=== PATIENT | male | born 1950 | race Caucasian/White ===

== ENCOUNTER 2017-06-24 09:41 | Day surgery (SDC) | payer MEDICARE ==
[2017-06-24] MEDS ORDERED: LIDOCAINE 2% MDV (20MG/ML) 20ML VIAL IV ONE ×2 (13:56→15:42)
[2017-06-24] MEDS ORDERED: TETRACAINE HCL 0.5% 15 ML OPTH BTL OPTH ONE (13:56)
[2017-06-24] MEDS ORDERED: LIDOCAINE 1% MPF 100MG/10ML STERILE-PAK AMPULE IV ONE (13:56)
[2017-06-24] MEDS ORDERED: TETRACAINE HCL 0.5% OPTH 2ML SOLU OPTH ONE (13:56)
[2017-06-24] MEDS ORDERED: EPINEPHRINE 1 MG/ML AMPUL SQ ONE (13:56)
[2017-06-24] MEDS ORDERED: CIPROFLOXACIN HCL 0.0015 GM, PHENYLEPHRINE HCL 0.05 GM, KETOROLAC TROMETHAMINE 0.000625 GM MC ONE ×5 (14:00)
--- NOTE | 2017-06-24 15:20 | OP NOTE CHAMES ---
DATE OF PROCEDURE: 06/24/17 PREOPERATIVE DIAGNOSIS: Nuclear sclerotic cataract, right eye, and posterior subcapsular cataract, right eye. POSTOPERATIVE DIAGNOSIS: Nuclear sclerotic cataract, right eye, and posterior subcapsular cataract, right eye. OPERATION: Phacoemulsification of cataractous lens with implantation of intraocular lens. LENS IMPLANT USED: Guthrie Model PCB00 + 21.5 diopters. COMPLICATIONS: None. PROCEDURE IN DETAIL: Following a retrobulbar and facial block, the patient was prepped and draped in the usual fashion for eye surgery. A lid speculum was placed in the right eye after which a 2.4 mm tunnel wound was placed at the temporal limbus and dissected into clear cornea. A paracentesis was placed at 2 oclock hours to the left and right of the initial incision and the chamber deepened with Viscoelastic. The keratome was then used to enter the anterior chamber after which the continuous circular capsulorrhexis was accomplished without difficulty using a bent needle and a Utrata forceps. Hydrodissection and hydrodelineation of the lens was performed after which the nucleus of the lens was removed using the Phaco handpiece in the [id number] technique. The residual cortical material was irrigated and aspirated from the eye after which the bag and chamber were re-examined. The bag was re-inflated with Viscoelastic and the intraocular lens injected into the capsular bag where it centered well. The Viscoelastic was then copiously irrigated and aspirated from the eye after which the temporal tunnel wound and paracentesis were hydrated and the wounds were examined. They were noted to be watertight. The lid speculum was removed from the eye and the eye patched and shielded. The patient was transferred to the recovery room in satisfactory condition and given an appointment to be reexamined in the clinic later today or as directed by Dr. Collins. JOB NUMBER: [id number] MTDD
[2017-06-24] MEDS ORDERED: MIDAZOLAM HCL 2MG/2ML VIAL IV ONE (15:42)
[2017-06-24] MEDS ORDERED: PROPOFOL 10 MG/ML VIAL IV ONE (15:42)
== END 2017-06-24 12:35 | disposition home or self-care (01) ==
LOC: SUR 09:41
PROVIDERS: ATTEND Ophthalmology
DX: H25.11 Age-related nuclear cataract, right eye (principal); E11.9 Type 2 diabetes mellitus without complications; Z79.4 Long term (current) use of insulin; Z79.84 Long term (current) use of oral hypoglycemic drugs; E78.00 Pure hypercholesterolemia, unspecified; I10 Essential (primary) hypertension; Z87.891 Personal history of nicotine dependence
CPT/HCPCS: J0171; J3490

== ENCOUNTER 2017-07-08 09:58 | Day surgery (SDC) | payer MEDICARE ==
[2017-07-08] MEDS ORDERED: LIDOCAINE 2% MDV (20MG/ML) 20ML VIAL IV ONE ×2 (13:00→14:00)
[2017-07-08] MEDS ORDERED: PROPOFOL 10 MG/ML VIAL IV ONE (13:00)
[2017-07-08] MEDS ORDERED: NEOMYCIN/POLY./DEXAM OPTH OINT OPTH ONE (14:00)
[2017-07-08] MEDS ORDERED: TETRACAINE HCL 0.5% 15 ML OPTH BTL OPTH ONE (14:00)
[2017-07-08] MEDS ORDERED: EPINEPHRINE 1 MG/ML AMPUL SQ ONE (14:00)
[2017-07-08] MEDS ORDERED: CIPROFLOXACIN HCL 0.0015 GM, PHENYLEPHRINE HCL 0.05 GM, KETOROLAC TROMETHAMINE 0.000625 GM MC ONE ×5 (18:00)
--- NOTE | 2017-07-09 07:45 | OP NOTE CHAMES ---
DATE OF PROCEDURE: 07/08/2017. PREOPERATIVE DIAGNOSIS: Nuclear sclerotic and posterior subcapsular cataract, right eye. POSTOPERATIVE DIAGNOSIS: Nuclear sclerotic and posterior subcapsular cataract, right eye. OPERATION: Phacoemulsification of cataractous lens with implantation of intraocular lens. LENS IMPLANT USED: Guthrie Model PCB00 + 21.5 diopters. COMPLICATIONS: None. PROCEDURE IN DETAIL: Following a retrobulbar and facial block, the patient was prepped and draped in the usual fashion for eye surgery. A lid speculum was placed in the right eye after which a 2.4 mm tunnel wound was placed at the temporal limbus and dissected into clear cornea. A paracentesis was placed at 2 oclock hours to the left and right of the initial incision and the chamber deepened with Viscoelastic. The keratome was then used to enter the anterior chamber after which the continuous circular capsulorrhexis was accomplished without difficulty using a bent needle and a Utrata forceps. Hydrodissection and hydrodelineation of the lens was performed after which the nucleus of the lens was removed using the Phaco handpiece in the [id number] technique. The residual cortical material was irrigated and aspirated from the eye after which the bag and chamber were re-examined. The bag was re-inflated with Viscoelastic and the intraocular lens injected into the capsular bag where it centered well. The Viscoelastic was then copiously irrigated and aspirated from the eye after which the temporal tunnel wound and paracentesis were hydrated and the wounds were examined. They were noted to be watertight. The lid speculum was removed from the eye and the eye patched and shielded. The patient was transferred to the recovery room in satisfactory condition and given an appointment to be reexamined in the clinic later today or as directed by Dr. Collins. David Collins M.D. Date & Time JOB NUMBER: [id number] MTDD
== END 2017-07-08 12:15 | disposition home or self-care (01) ==
LOC: SUR 09:58
PROVIDERS: ATTEND Ophthalmology
DX: H25.12 Age-related nuclear cataract, left eye (principal); E11.9 Type 2 diabetes mellitus without complications; Z79.84 Long term (current) use of oral hypoglycemic drugs; Z79.4 Long term (current) use of insulin; E78.00 Pure hypercholesterolemia, unspecified; I10 Essential (primary) hypertension; H25.041 Posterior subcapsular polar age-related cataract, right eye
CPT/HCPCS: J0171

== ENCOUNTER 2018-03-07 08:39 | Emergency (ER) | payer MEDICARE ==
--- NOTE | 2018-03-07 09:08 | Emergency Department Record ---
History of Present Illness - General Chief Complaint: Neck Injury/Pain Stated Complaint: NECK PAIN Time Seen by Provider: 03/07/18 08:51 Source: Patient Mode of Arrival: Ambulatory Limitations: No limitations - History of Present Illness Initial Comments: The patient is here due to L posterior neck pain for 3 days. It has gotten progressively worse since the onset and intermittently radiates to the L shoulder. There is no arm or leg numbness, weakness or tingling. The pain is much worse with bending the head and neck to the R. He denies any CP, SOB, EDSON, or sweating. The patient denies any trauma, injury, or fall. MD Complaint: Neck pain Onset/Timin -: Days(s) Place: Home Radiation: Left shoulder, Left upper extremity Severity: Moderate, Constant Severity scale (1-10): 8 Consistency: Constant Improves With: Medication OTC/prescribed Worsens With: None Treatments Prior to Arrival: Acetaminophen - Related Data Home Medications Medication Instructions Recorded Confirmed Last Taken Aspirin Chewable 81 mg PO DAILY 03/07/18 03/07/18 Unknown Atorvastatin Calcium 20 mg PO DAILY 03/07/18 03/07/18 Unknown Gabapentin [Neurontin] 100 mg PO TID 03/07/18 03/07/18 Unknown Glimepiride [Amaryl] 8 mg PO DAILY 03/07/18 03/07/18 Unknown Insulin Degludec [Tresiba 50 unit SQ BID 03/07/18 03/07/18 Unknown Flextouch U-100] Meloxicam 7.5 mg PO BID 03/07/18 03/07/18 Unknown Previous Rx's Medication Instructions Recorded Acetaminop W/ Codeine 300/30Mg 1 tab PO Q6H #12 tab 03/07/18 [Tylenol #3] Cyclobenzaprine HCl [Flexeril] 10 mg PO TID PRN #20 tablet 03/07/18 Allergies Allergy/AdvReac Type Severity Reaction Status Date / Time No Known Drug Allergies Allergy Verified 03/07/18 08:45 Travel Screening - Travel/Exposure Within Last 30 Days Have you traveled within the last 30 days?: No Review of Systems Constitutional: Denies: Chills, Fever, Other Eyes: Denies: Eye discharge, Eye pain ENT: Denies: Congestion Respiratory: Denies: Cough, Dyspnea Past Medical History - SOCIAL HISTORY Smoking Status: Former smoker Alcohol Use: None Drug Use: None - RESPIRATORY Hx Respiratory Disorders: No - CARDIOVASCULAR Hx Cardio Disorders: Yes Hx Heart Attack: Yes - NEURO Hx Neuro Disorders: No Hx of Migraines: Yes Hx Neuropathy: Yes - GI Hx GI Disorders: Yes Hx Reflux: Yes Hx Hiatal Hernia: Yes - Hx Genitourinary Disorders: No - ENDOCRINE Hx Endocrine Disorders: Yes - MUSCULOSKELETAL Hx Musculoskeletal Disorders: No Hx Arthritis: Yes - PSYCH Hx Psych Problems: No - HEMATOLOGY/ONCOLOGY Hx Hematology/Oncology Disorders: No Family Medical History Any Significant Family History?: No Physical Exam - General General Appearance: Alert, Oriented x3, Cooperative, No acute distress - Head Head exam: Atraumatic, Normocephalic, Normal inspection - Eye Eye exam: Normal appearance, PERRL, EOMI - ENT Throat exam: Normal inspection. negative: Tonsillar erythema, Tonsillar exudate - Neck Neck exam: Normal inspection, Full ROM (There is normal ROM with an increase in pain with bending the head and neck to the R.), Tenderness (The patient is very reproducible to palpation over the L posterior cervical muscles. ). negative: Lymphadenopathy, Meningismus - Respiratory Respiratory exam: Normal lung sounds bilaterally. negative: Respiratory distress - Cardiovascular Cardiovascular Exam: Regular rate, Normal rhythm, Normal heart sounds - GI/Abdominal GI/Abdominal exam: Soft, Normal bowel sounds. negative: Tenderness - Extremities Extremities exam: Normal inspection, Full ROM, Normal capillary refill. negative: Tenderness Image of Full Body: 1 - Area of pain and 100% reproducible tenderness. - Neurological Neurological exam: Alert, Normal gait, Oriented X3, Reflexes normal. negative: Abnormal gait, Altered, Motor sensory deficit - Skin Skin exam: negative: Rash Course Vital Signs 03/07/18 08:42 Temperature 97.5 F L Pulse Rate 70 Respiratory 20 Rate Blood Pressure 147/105 Pulse Ox 99 - Reevaluation(s) Reevaluation #1: The patient is doing better at this time. He denies any CP, SOB, EDSON, sweating, or nausea and also denies any new balance issues or weakness. I did discuss the xrays with him and the need for F/U later this week. 03/07/18 10:03 Medical Decision Making - Data Complexity MDM Data: X-Ray Ordered and/or Reviewed - Radiology Data Radiology results: Report reviewed (Cspine: Sacha QUINTAINLLA, O/W neg.) Disposition Disposition: Discharge Clinical Impression: Muscle spasm Disposition: Home, Self-Care Condition: (2) Stable Instructions: Muscle Strain (ED) Additional Instructions: Please take the Tylenol # 3 and Flexeril if needed for pain. Please see your family doctor for recheck later this week. Return to the ER for any worsening pain, fever, rash, swelling, or any arm or leg numbness, weakness or tingling. Prescriptions: Acetaminop W/ Codeine 300/30Mg [Tylenol #3] 1 tab PO Q6H #12 tab Cyclobenzaprine HCl [Flexeril] 10 mg PO TID PRN #20 tablet PRN Reason: Pain Forms: Patient Portal Access Time of Disposition: 10:06 Quality - Quality Measures Quality Measures: N/A - Blood Pressure Screening View Details: Yes Does Patient Have Any of the Following: No Blood Pressure Classification: Pre-Hypertensive BP Reading Systolic Measurement: 124 Diastolic Measurement: 64 Screening for High Blood Pressure: < Pre-Hypertensive BP, F/U Documented > [ G8950] Pre-Hypertensive Follow-up Interventions: Referral to alternative/primary care provider.
[2018-03-07] MEDS: ACETAMINOPHEN 325 MG TAB PO ONE (09:33)
--- NOTE | 2018-03-08 08:46 | RADIOLOGY REPORT ---
EXAM: CERVICAL SPINE HISTORY: NECK PAIN. TECHNIQUE: Six views of the cervical spine were obtained. Comparison: None. Encounter: Initial. FINDINGS: Osteopenia. The vertebral body height and alignment is preserved. The atlantoaxial space is preserved. The lateral masses are not displaced. Multilevel degenerative change throughout the cervical spine, greatest at the C5 -C6 and C6-C7 levels. IMPRESSION: OSTEOPENIA WITH DIFFUSE/MULTILEVEL DEGENERATIVE CHANGE. JOB NUMBER: [id number] MTDD
== END 2018-03-07 10:14 | disposition home or self-care (01) ==
LOC: ER 08:39
DX: M62.838 Other muscle spasm (principal); M50.322 Other cervical disc degeneration at C5-C6 level
CPT/HCPCS: 72050; 99283

== ENCOUNTER 2018-09-15 12:58 | Emergency (ER) | payer MEDICARE ==
[2018-09-15] MEDS ORDERED: IPRATROPIUM/ALBUTEROL (0.5MG/3MG) NEB INH ONE (13:21)
--- NOTE | 2018-09-15 13:26 | Emergency Department Record ---
History of Present Illness - General Chief Complaint: Difficulty Breathing Stated Complaint: SOB Time Seen by Provider: 09/15/18 13:14 Source: Patient, Family Mode of Arrival: Ambulatory Limitations: No limitations - History of Present Illness Initial Comments: The patient is here due to developing coughing, wheezing, and SOB off and on today. He denies any CP, fever, or sputum production. Additionally he has been experiencing fatigue and weakness. The patient had a similar issue about a month ago and was told he had a touch of pneumonia. He also has had L leg swelling for about 6 months. MD Complaint: Cough, Shortness of breath Onset/Timin -: Hour(s) Consistency: Intermittent Improves With: Other Worsens With: Exertion Known History Of: Other Context: Recent illness, Recent URI Associated Symptoms: Cough Treatments Prior to Arrival: None - Related Data Home Oxygen Therapy: No Allergies Allergy/AdvReac Type Severity Reaction Status Date / Time No Known Drug Allergies Allergy Verified 09/15/18 13:02 Travel Screening - Travel/Exposure Within Last 30 Days Have you traveled within the last 30 days?: No - Travel/Exposure Within Last Year Have you traveled outside the [place] in the last year?: No - Additonal Travel Details Have you been exposed to anyone with a communicable illness?: No - Travel Symptoms Symptom Screening: None Review of Systems Constitutional: Reports: Malaise. Denies: Chills, Fever Eyes: Denies: Eye discharge ENT: Reports: Congestion Respiratory: Reports: Cough, Dyspnea, Wheezes. Denies: Hemoptysis, Stridor Cardiovascular: Denies: Arrhythmia, Chest pain Endocrine: Reports: Fatigue Gastrointestinal: Denies: Nausea, Vomiting Genitourinary: Denies: Hematuria Musculoskeletal: Denies: Arthralgia Skin: Denies: Bruising Past Medical History - SOCIAL HISTORY Smoking Status: Former smoker Alcohol Use: None Drug Use: None - RESPIRATORY Hx Respiratory Disorders: No - CARDIOVASCULAR Hx Cardio Disorders: Yes Hx Heart Attack: Yes - NEURO Hx Neuro Disorders: No Hx of Migraines: Yes Hx Neuropathy: Yes - GI Hx GI Disorders: Yes Hx Reflux: Yes Hx Hiatal Hernia: Yes - Hx Genitourinary Disorders: No - ENDOCRINE Hx Endocrine Disorders: Yes - MUSCULOSKELETAL Hx Musculoskeletal Disorders: No Hx Arthritis: Yes - PSYCH Hx Psych Problems: No - HEMATOLOGY/ONCOLOGY Hx Hematology/Oncology Disorders: No Hx Clotting Problems: Yes (STATES SM ONE IN LEG BUT HAS NO TREATMENT) Family Medical History Any Significant Family History?: No Physical Exam - General General Appearance: Alert, Oriented x3, Cooperative, No acute distress - Head Head exam: Atraumatic, Normocephalic, Normal inspection - Eye Eye exam: Normal appearance, PERRL - ENT Throat exam: Normal inspection. negative: Tonsillar erythema, Tonsillar exudate - Neck Neck exam: Normal inspection, Full ROM. negative: Tenderness - Respiratory Respiratory exam: Normal lung sounds bilaterally. negative: Respiratory distress - Cardiovascular Cardiovascular Exam: Regular rate, Normal rhythm, Normal heart sounds - GI/Abdominal GI/Abdominal exam: Soft, Normal bowel sounds. negative: Tenderness - Extremities Extremities exam: Normal inspection, Pedal edema (Trace L leg.). negative: Calf tenderness - Neurological Neurological exam: Alert, Normal gait. negative: Abnormal gait, Motor sensory deficit - Psychiatric Psychiatric exam: negative: Anxious Course Vital Signs 09/15/18 13:06 Temperature 98.6 F Pulse Rate 96 H Respiratory 20 Rate Blood Pressure 157/82 Pulse Ox 96 - Reevaluation(s) Reevaluation #1: The patient is doing very well at this time. I did discuss the need for further testing and need for transfer for a VQ scan due to the renal Insuffiency. The patient understands and will need to be transferred to [facility] due to the fact he has seen a T[facility] In [facility] there in the past. 09/15/18 15:29 09/15/18 15:59 Reevaluation #2: I did discuss the case with Dr. Manzo at [facility] and he does accept the patient in transfer. He also agrees with the plan for Lovenox and then a VQ scan to R/O PE and also for a [facility] Cardiology consult. 09/15/18 15:44 Medical Decision Making - Data Complexity MDM Data: Labs Ordered and/or Reviewed, X-Ray Ordered and/or Reviewed, EKG Ordered and/or Reviewed - Lab Data Result diagrams: 09/15/18 13:20 09/15/18 13:20 - EKG Data -: EKG Interpreted by Me EKG: No Acute Changes, Unchanged From Previous - Radiology Data Radiology results: Report reviewed (CXR: Neg L leg doppler: Neg. ) Disposition Disposition: Transfer Clinical Impression: Dyspnea Qualifiers: Dyspnea type: unspecified Qualified Code(s): R06.00 - Dyspnea, unspecified Disposition: Acute Care Hospital Transfer Transfer To: [facility] Reason For Transfer: Cardiology Accepting Physician: Jovany Time Discussed w/Accepting Physician: 15:45 Condition: (2) Stable Instructions: Dyspnea (ED) Forms: Patient Portal Access Time of Disposition: 15:45 Quality - Quality Measures Quality Measures: N/A - Blood Pressure Screening View Details: Yes Does Patient Have Any of the Following: No Blood Pressure Classification: Pre-Hypertensive BP Reading Systolic Measurement: 157 Diastolic Measurement: 82 Screening for High Blood Pressure: < Pre-Hypertensive BP, F/U Documented > [ G8950] Pre-Hypertensive Follow-up Interventions: Referral to alternative/primary care provider.
[2018-09-15 13:32] LABS: BASO % 0.1 % (0-6); GRAN % 76.8 % (47-80); HEMATOCRIT 36.1 % (42.0-52.0); HEMOGLOBIN 11.4 gm/dl (14.0-18.0); LYMPH % 13.7 % (16-45); MEAN CELL VOLUME 87.2 fl (81-97); MEAN CORPUSCULAR HEMOGLOBIN 27.5 pg (27-33); MEAN CORPUSCULAR HGB CONC 31.6 g/dl (32-36); MEAN PLATELET VOLUME 12.6 fl (7.4-10.4); MONO % 6.4 % (0-9); PLATELET COUNT 188 K/uL (130-400); RED BLOOD COUNT 4.14 M/uL (4.40-5.70); RED CELL DISTRIBUTION WIDTH 14.2 % (11.5-14.5); WHITE BLOOD COUNT W/O DIFF 8.4 K/uL (4.2-12.2)
[2018-09-15 13:47] LABS: BILIRUBIN,TOTAL 0.4 mg/dL (0.2-1.0); CREATININE 1.3 mg/dL (0.7-1.2)
[2018-09-15 13:48] LABS: TOTAL PROTEIN 6.9 g/dL (6.6-8.7)
[2018-09-15 13:50] LABS: PARTIAL THROMBOPLASTIN TIME 28.8 SECONDS (24.5-39.1)
[2018-09-15 13:53] LABS: ALB/GLOB RATIO 1.6 (1.1-1.8); ALBUMIN 4.2 g/dL (4.0-5.0)
[2018-09-15 14:18] LABS: CKMB 9.5 ng/mL (<6.73); CKMB RELATIVE INDEX 3.8 % (0-4)
[2018-09-15] MEDS ORDERED: ENOXAPARIN 100 MG/ML SYR SQ ONE (15:31)
--- NOTE | 2018-09-16 08:09 | RADIOLOGY REPORT ---
DATE: 09/15/2018. EXAM: TWO-VIEW CHEST. HISTORY: DIFFICULTY BREATHING. TECHNIQUE: Frontal and lateral views of the chest were performed. FINDINGS: Heart size is normal. No pulmonary vascular congestion. No infiltrate or pleural effusion. The osseous structures are normal. IMPRESSION: NO ACUTE DISEASE PROCESS. JOB NUMBER: [id number] MTDD
--- NOTE | 2018-09-16 08:35 | US VENOUS DOPPLER REPORT ---
DATE: 09/15/2018. EXAM: ULTRASOUND OF THE DEEP VENOUS SYSTEM OF THE LEFT LOWER EXTREMITY. HISTORY: SOFT TISSUE SWELLING. TECHNIQUE: Sonographic evaluation of the deep venous system of the left lower extremity was performed with the addition of Doppler compression augmentation. FINDINGS: There is normal blood flow and compression augmentation identified in the deep venous system of the left lower extremity. No evidence of deep vein thrombosis. IMPRESSION: NEGATIVE FOR DEEP VEIN THROMBOSIS IN THE LEFT LOWER EXTREMITY. JOB NUMBER: [id number] MTDD
== END 2018-09-15 17:01 | disposition short-term general hospital (02) ==
LOC: ER 12:58
DX: R06.00 Dyspnea, unspecified (principal); N28.9 Disorder of kidney and ureter, unspecified; R79.89 Other specified abnormal findings of blood chemistry; R53.1 Weakness; R53.83 Other fatigue; I25.2 Old myocardial infarction; Z87.891 Personal history of nicotine dependence
CPT/HCPCS: 71046; 80053; 82550; 82553; 83880; 84145; 84484; 85025; 85379; 85610; 85730; 93005; 93010; 96372; 99285; J1650

== ENCOUNTER 2019-07-24 14:50 | Inpatient (IN) | payer MEDICARE ==
[2019-07-24] MEDS ORDERED: MIDAZOLAM HCL 2MG/2ML VIAL IV ONE (14:51)
[2019-07-24] MEDS ORDERED: LIDOCAINE 2% MDV (20MG/ML) 20ML VIAL IV ONE (14:51)
[2019-07-24] MEDS ORDERED: FENTANYL PF 100MCG/2ML VIAL IV ONE (14:51)
[2019-07-24] MEDS ORDERED: PROPOFOL 10 MG/ML VIAL IV ONE (14:51)
[2019-07-24] MEDS ORDERED: *PACU ONLY* KETAMINE HCL 10 MG/ML (20ML) VIAL IV ONE (14:51)
[2019-07-24] MEDS ORDERED: AMPICILLIN SODIUM/SULBACTAM NA 3 G in 0.9 % SODIUM CHLORIDE 100ML 100 ML IVPB ONE (15:06)
--- NOTE | 2019-07-24 15:19 | Emergency Department Record ---
History of Present Illness - General Chief complaint: Extremity Problem Stated complaint: RIGHT FOOT PAIN Time Seen by Provider: 07/24/19 14:55 Source: Patient Mode of Arrival: Ambulatory Limitations: No limitations - History of Present Illness Initial comments: The patient is here due to R foot pain for almost a week. It has been a lot worse for the last 3 days. The patient did develop R foot redness and a blister on the bottom of the foot. He did see Dr. Barba today who did unroof the infection and did remove a possible FB and did culture the wound. Due to the amount of pain and erythema the patient was seen in the ER for further evaluation. The patient does state he has felt feverish for the last 3 days and had some chills. He denies any CP, SOB, AP, dysuria, or back pain. The patient has been having foot pain that does radiate up the lower leg. MD Complaint: Extremity pain Onset/Timin -: Days(s) Location: Right, Ankle, Foot History of Same: No Radiation: Proximal Improves with: Nothing Worsens with: Nothing Associated Symptoms: Denies other symptoms - Related Data Allergies Allergy/AdvReac Type Severity Reaction Status Date / Time No Known Drug Allergies Allergy Verified 07/24/19 14:56 Travel Screening - Travel/Exposure Within Last 30 Days Have you traveled within the last 30 days?: No Review of Systems Constitutional: Reports: Chills, Malaise. Denies: Fever Eyes: Denies: Eye discharge ENT: Denies: Congestion Respiratory: Denies: Cough Cardiovascular: Denies: Arrhythmia, Chest pain, Dyspnea on exertion, Palpitations Endocrine: Denies: Fatigue Gastrointestinal: Denies: Nausea Genitourinary: Denies: Dysuria Musculoskeletal: Reports: Arthralgia Skin: Denies: Bruising Neurological: Reports: Abnormal gait Past Medical History - SOCIAL HISTORY Smoking Status: Former smoker Alcohol Use: None Drug Use: None - RESPIRATORY Hx Respiratory Disorders: No - CARDIOVASCULAR Hx Cardio Disorders: Yes Hx Heart Attack: Yes Comment:: small blood clot to leg - NEURO Hx Neuro Disorders: Yes Hx of Migraines: Yes Hx Neuropathy: Yes - GI Hx GI Disorders: Yes Hx Reflux: Yes Hx Hiatal Hernia: Yes - Hx Genitourinary Disorders: No - ENDOCRINE Hx Endocrine Disorders: Yes - MUSCULOSKELETAL Hx Musculoskeletal Disorders: No Hx Arthritis: Yes - PSYCH Hx Psych Problems: No - HEMATOLOGY/ONCOLOGY Hx Hematology/Oncology Disorders: No Family Medical History Any Significant Family History?: No Physical Exam - General General Appearance: Alert, Oriented x3, Cooperative, No acute distress - Head Head exam: Atraumatic, Normocephalic - Eye Eye exam: Normal appearance - ENT Throat exam: Normal inspection. negative: Tonsillar erythema, Tonsillar exudate - Neck Neck exam: Normal inspection, Full ROM. negative: Tenderness - Respiratory Respiratory exam: Normal lung sounds bilaterally. negative: Respiratory distress - Cardiovascular Cardiovascular Exam: Regular rate, Normal rhythm, Normal heart sounds - GI/Abdominal GI/Abdominal exam: Soft, Normal bowel sounds. negative: Tenderness - Extremities Extremities exam: Normal capillary refill, Tenderness (There is significant tenderness to the dosal R foot and R lower leg. The R lower leg is not warm or erythematous. There is no crepitance to the R foot or leg. ), Other (The patient has trace DP pulses bilaterally and no PT pulses. There is significant warmth to the dorsal R foot.). negative: Normal inspection (The R foot has significant erythema to the dorsal and plantar surfaces. There is an unroofed skin ulcer on the plantar surface at the base of the 4th toe. ), Calf tenderness, Full ROM, Pedal edema - Back Back exam: Reports: Normal inspection - Neurological Neurological exam: Alert. negative: Motor sensory deficit - Psychiatric Psychiatric exam: Anxious Course Vital Signs 07/24/19 14:51 Temperature 99.7 F H Pulse Rate 76 Respiratory 20 Rate Blood Pressure 143/83 Pulse Ox 98 - Reevaluation(s) Reevaluation #1: After review of the xrays the patient does have gas between the 3rd and 4th MT bones of the foot due to most likely a deep space gas forming infection. I then did discuss the case with Dr. Barba (Podiatry) and he will take the patient to surgery tonight. I then did discuss the case with Dr. Teran and he will admit the patient to the hospital. 07/24/19 16:46 Medical Decision Making - Data Complexity MDM Data: Labs Ordered and/or Reviewed, X-Ray Ordered and/or Reviewed - Lab Data Result diagrams: 07/24/19 15:10 07/24/19 15:10 - Radiology Data Radiology results: Report reviewed (R foot: Prob gas forming infection between the 3rd and 4th toes. R leg Arterial Vascular study: Severe PVD with very poor flow. Severe stenosis at the common femoral and popliteal arteries.) Disposition Disposition: Admit Clinical Impression: Diabetic foot infection Disposition: Still a Patient at [facility] Decision to Admit: Admit from ER Decision to Admit Date: 07/24/19 Decision to Admit Time: 16:49 Accepting Physician: Parul Time Discussed w/Accepting Physician: 16:49 Condition: (2) Stable Forms: Patient Portal Access Time of Disposition: 16:49 Quality - Quality Measures Quality Measures: N/A - Blood Pressure Screening View Details: Yes Does Patient Have Any of the Following: No Blood Pressure Classification: Pre-Hypertensive BP Reading Systolic Measurement: 143 Diastolic Measurement: 83 Screening for High Blood Pressure: < Pre-Hypertensive BP, F/U Documented > [G8950] Pre-Hypertensive Follow-up Interventions: Referral to alternative/primary care provider.
[2019-07-24 15:21] LABS: ABSOLUTE NEUTROPHIL COUNT 8.86; GRAN % 77.4 % (47-80); HEMATOCRIT 32.5 % (42.0-52.0); HEMOGLOBIN 10.3 gm/dl (14.0-18.0); LYMPH % 12.2 % (16-45); MEAN CELL VOLUME 86.2 fl (81-97); MEAN CORPUSCULAR HEMOGLOBIN 27.3 pg (27-33); MEAN CORPUSCULAR HGB CONC 31.7 g/dl (32-36); MEAN PLATELET VOLUME 11.8 fl (7.4-10.4); MONO % 9.4 % (0-9); PLATELET COUNT 218 K/uL (130-400); RED BLOOD COUNT 3.77 M/uL (4.40-5.70); RED CELL DISTRIBUTION WIDTH 14.2 % (11.5-14.5); WHITE BLOOD COUNT W/O DIFF 11.4 K/uL (4.2-12.2)
[2019-07-24] MEDS ORDERED: ACETAMINOPHEN 1,000 MG/100 ML BTL IVPB ONE (15:26)
[2019-07-24 15:32] LABS: BLOOD UREA NITROGEN 29 mg/dL (8-23); CREATININE 1.5 mg/dL (0.7-1.2); EST GLOMERULAR FILTRATION RATE 49 mL/min
[2019-07-24 15:33] LABS: TOTAL PROTEIN 7.4 g/dL (6.6-8.7)
[2019-07-24 15:35] LABS: GLUCOSE,RANDOM 188 mg/dL (74-109)
[2019-07-24 15:37] LABS: ALT/SGPT 17 U/L (<41)
[2019-07-24 15:38] LABS: ALBUMIN 4.2 g/dL (4.0-5.0); ALKALINE PHOSPHATASE 72 U/L (40-129); AST/SGOT 17 U/L (10.0-50.0); BILIRUBIN,DIRECT < 0.2 mg/dL (0-0.3); LACTIC ACID 1.2 mmol/L (0.5-2.2)
--- NOTE | 2019-07-24 16:02 | RADIOLOGY REPORT ---
EXAMINATION: Right Foot, Minimum Three Views EXAM DATE: 07/24/2019 3:49 PM TECHNIQUE: AP, lateral, and oblique INDICATION: R foot and leg pain. COMPARISON: 02/05/2016 ENCOUNTER: Initial FINDINGS: There is soft tissue gas involving the third and fourth toes which could be due to a penetrating inju ry or gas-forming infection. It would be difficult to exclude early osteomyelitis involving the middl e phalanx of the fourth toe. No acute fractures or dislocations are seen. There is an old deformity involving the base of the fift h metatarsal, unchanged. There are sizable plantar and posterior calcaneal spurs. There are atheroscl erotic calcifications. A gas forming infection. IMPRESSION: 1. Soft tissue gas in the third and fourth toes, as described. It would be difficult to exclude early osteomyelitis involving the middle phalanx of the fourth toe. 2. Chronic findings, as noted above. Dictated by: Ryne Bhandari MD on 07/24/2019 3:57 PM. .
[2019-07-24] MEDS: VANCOMYCIN 1.5GM/300ML PREMIX 1.5 GM/300 ML PIGGYBACK IVPB SCH (16:28)
[2019-07-24] MEDS ORDERED: HYDROMORPHONE HCL 2 MG/ML VIAL IVP ONE (16:32)
[2019-07-24] MEDS ORDERED: ONDANSETRON HCL IV 4 MG/2 ML VIAL IVP ONE (16:32)
--- NOTE | 2019-07-24 17:00 | ULTRASOUND REPORT ---
EXAMINATION: Complete Right Lower Extremity Arterial Duplex Doppler Imaging EXAM DATE: 07/24/2019 4:24 PM TECHNIQUE: Color Doppler, spectral Doppler, and cui scale ultrasound evaluation of the right lower extremity arteries was performed. Images recorded and stored on PACS. INDICATION: Right foot and leg pain. COMPARISON: None FINDINGS: RIGHT lower extremity arteries PSV (cm/s) Common femoral............. 163 proximal, 230 at stenosis Deep femoral.................. 233, monophasic Superficial femoral, prox... 131, monophasic Superficial femoral, mid.... 176, biphasic to triphasic Superficial femoral, distal.. 138, monophasic Popliteal.......................... 105 proximal, 445 at stenosis, 80 post stenosis Posterior tibial................. Poorly visualized proximally, 10 distally, stenotic; likely from co llateral flow Peroneal......................... 122 proximal, 29 distal, monophasic Anterior tibial................... 166 proximal, monophasic Dorsalis pedis................. 73, monophasic Multifocal atherosclerotic vascular disease in the right lower extremity. This includes focal severe stenosis at the common femoral artery, focal severe stenosis at the popliteal artery, with diffuse be low the knee atherosclerotic vascular disease as well with poorly visualized posterior tibial arteria l flow proximally and stenotic distal waveform. There is poor flow in the distal peroneal artery as w ell. Likely collateral flow to the distal posterior tibial artery. There is predominantly single-vess el flow to the foot from the anterior tibial artery. IMPRESSION: 1. Multifocal atherosclerotic vascular disease of the right lower extremity, including severe stenos is at the common femoral and popliteal arteries. 2. Poorly visualized posterior tibial arterial flow proximally, with likely collateral flow distally , and associated stenotic waveform. 3. Predominantly single-vessel flow to the foot from the anterior tibial/dorsalis pedis artery. The orange significant findings protocol was initiated at 07/24/2019 4:57 PM. Dictated by: Parminder Carrasco MD on 07/24/2019 4:50 PM. .
[2019-07-24] MEDS ORDERED: RINGERS SOLUTION,LACTATED 1,000 ML IV PRN ×2 (17:14→20:08)
[2019-07-24] MEDS ORDERED: LIDOCAINE 1% MPF 100MG/10ML STERILE-PAK AMPULE SQ ONE (18:16)
[2019-07-24] MEDS ORDERED: BUPIVACAINE 0.25% MPF 30ML VIAL SQ ONE (18:16)
[2019-07-24] MEDS ORDERED: RINGERS SOLUTION,LACTATED 1,000 ML IV ONE (18:55)
[2019-07-24] MEDS ORDERED: 0.9 % SODIUM CHLORIDE 1000ML 1,000 ML IV ONE (20:03)
[2019-07-24] MEDS ORDERED: ONDANSETRON HCL IV 4 MG/2 ML VIAL IVP PRN (20:03)
[2019-07-24] MEDS: GABAPENTIN 100 MG CAPSULE PO SCH (22:20)
[2019-07-24] MEDS: AMPICILLIN SODIUM/SULBACTAM NA 3 G in 0.9 % SODIUM CHLORIDE 100ML 100 ML IVPB SCH (22:20)
[2019-07-24] MEDS: METFORMIN 500 MG TABLET PO SCH (22:20)
[2019-07-25] MEDS: HYDROCODONE/APAP 5/325MG TABLET PO PRN ×4 (02:29→16:36)
[2019-07-25] MEDS: HYDROMORPHONE HCL 2 MG/ML VIAL IVP PRN ×2 (03:24→17:25)
[2019-07-25] MEDS: AMPICILLIN SODIUM/SULBACTAM NA 3 G in 0.9 % SODIUM CHLORIDE 100ML 100 ML IVPB SCH ×3 (03:25→16:33)
[2019-07-25 06:39] LABS: ABSOLUTE NEUTROPHIL COUNT 7.45; BASO % 0.1 % (0-6); EOS % 2.9 % (0-6); GRAN % 79.6 % (47-80); HEMATOCRIT 30.1 % (42.0-52.0); HEMOGLOBIN 9.4 gm/dl (14.0-18.0); LYMPH % 9.5 % (16-45); MEAN CELL VOLUME 87.5 fl (81-97); MEAN CORPUSCULAR HEMOGLOBIN 27.3 pg (27-33); MEAN CORPUSCULAR HGB CONC 31.2 g/dl (32-36); MEAN PLATELET VOLUME 11.3 fl (7.4-10.4); MONO % 7.9 % (0-9); PLATELET COUNT 183 K/uL (130-400); RED BLOOD COUNT 3.44 M/uL (4.40-5.70); RED CELL DISTRIBUTION WIDTH 14.1 % (11.5-14.5); WHITE BLOOD COUNT W/O DIFF 9.4 K/uL (4.2-12.2)
[2019-07-25 07:33] LABS: CREATININE 1.6 mg/dL (0.7-1.2)
[2019-07-25] MEDS: METFORMIN 500 MG TABLET PO SCH (09:23)
[2019-07-25] MEDS: GABAPENTIN 100 MG CAPSULE PO SCH ×2 (09:24→16:35)
[2019-07-25] MEDS ORDERED: LISINOPRIL PO SCH (10:00)
[2019-07-25] MEDS ORDERED: ATORVASTATIN 20 MG TABLET PO SCH (10:00)
[2019-07-25] MEDS ORDERED: LOSARTAN POTASSIUM 100 MG TABLET PO SCH (10:00)
[2019-07-25] MEDS ORDERED: ASPIRIN 81 MG CHEWABLE TABLET PO SCH (10:00)
[2019-07-25] MEDS ORDERED: GLIMEPIRIDE 2 MG TABLET PO SCH (10:00)
[2019-07-25] MEDS ORDERED: INSULIN DEGLUDEC SC SCH (10:00)
[2019-07-25] MEDS: VANCOMYCIN 1.5GM/300ML PREMIX 1.5 GM/300 ML PIGGYBACK IVPB SCH (10:38)
--- NOTE | 2019-07-25 10:41 | Operative Note ---
DATE OF SURGERY: 07/24/2019 PREOPERATIVE DIAGNOSIS: ABSCESS RIGHT FOOT WITH DIABETIC FOOT INFECTION. POSTOPERATIVE DIAGNOSIS: ABSCESS RIGHT FOOT WITH DIABETIC FOOT INFECTION. OPERATION: INCISION AND DRAINAGE OF ABSCESS RIGHT FOOT. SURGEON: Ryne Barba D.P.M. INDICATION FOR PROCEDURE: The patient had diabetic foot infection right which appears secondary to previous foreign body with gas noted on x-ray requiring incision and drainage. ANESTHESIA: Local with IV sedation. Patient was brought into the Operating Room Suite and placed supine upon the operating room table. After successful IV sedation was achieved a right tibial nerve block and ankle block was given with 30 ml of a 50/50 mixture of 1% Lidocaine plain and 0.5% Marcaine plain after alcohol prep. Padding put on right ankle and pneumatic cuff put in place. The foot, ankle and leg were exsanguinated with elevation and an Esmarch started at the ankle. Tourniquet raised to 250 mmHg. Anesthesia check indicated appropriate anesthesia. C-Arm utilized to isolate the area of gas which was noted around the fourth metatarsal head plantarly right in the ball of the right foot. An incision was outlined and made approximately 3 cm in length in the plantar aspect of the right foot. Incision and drainage performed without difficulty. The wound was explored deeply, there were some sinus tracts noted going up into the fourth interspace dorsally. There was also tracking up into the medial aspect of the fourth toe of the right foot as well as up into the dorsal aspect of the third interspace, therefore, an additional incision was made in the dorsal aspect of the third interspace approximately 2 cm in length on the dorsal aspect of the right foot. Blunt dissection was utilized for further exploration, noted was malodor, noted was purulent primarily plantarly clear to straw colored fluid drained dorsally. All bone was covered. No exposed bone. The bone appeared to be intact, therefore, no bone biopsy taken. It did not appear that any bone was exposed. Abscess appeared to be within the soft tissue down to the capsule of the fourth metatarsal phalangeal joint laterally right. There is a small amount of necrotic tissue to the fourth metatarsal phalangeal joint region which was approximately 1.5 to 2 cm in diameter which was debrided. The wound was flushed with pulse saline 3,000 ml, aerobic and anaerobic cultures taken, necrotic tissue debrided and sluffing skin debrided first, skin debrided first, wound packed with one half inch packing strip followed by wet to dry dressing with Adaptic 4-inch Iqra and Kerlix. [place] wrap applied. Tourniquet deflated to 0 mmHg. Hyperemic flush noted to digits. The patient tolerated the procedure well and was transferred to the Recovery Room in stable condition. The wound was left open, no sutures utilized. JOB NUMBER: [id number] MTDD
--- NOTE | 2019-07-25 11:35 | History & Physical ---
History of Present Illness - Date of Service Date of Service for History & Physical: 07/25/19 - History of Present Illness Admitting Diagnosis: 1. Acute R Foot Deep Space Infection. History of Present Illness: 68 y/o male transferred from post doc fellowship office to ED for r/o osteomyelitis for right foot. Patient is a type 2 diabetic, had an ulcer to plantar surface of base of right 4th toe unroofed by Dr. Barba 07/24 and subsequently sent to ED due to extensive soft tissue infection. Patient noticed right foot redness, chills, pain about 2 days prior to being seen. 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 CRP 13.7, uric acid 6.8, Hgb 9.4, BUN 29, Cr 1.6, GFR 46. Foot x-ray- soft tissue gas about 3rd and 4th toes not excluding early osteomyelitis mid phalynx 4th toe. Arterial doppler RLE shows multifocal arherosclerotic vascular disease with severe stenosis of common femoral and popliteal arteries. EKG with no acute changes from previous. Case was discussed with Dr. Barba and was taken to OR for right foot I&D and admitted for IV antibiotics and medical management. 07/25/19 1000- resting in bed, appears uncomfortable. Reports his pain is the same as it has been for the past couple days, rating 6-7/10, having chills and feels feverish (no fever currently). Dressing intact to right foot. Did discuss with him and his concerns regarding healing and the severe stenosis of right leg arteries and how that may impact healing and infection resolution. and patient are in agreement for transfer to [facility] for vascular surgery consult. PCP: Dr. Cervantes Cardiology: Dr. Gonzalez CVTS: Dr. Ta Travel Screening - Travel/Exposure Within Last 30 Days Have you traveled within the last 30 days?: No - Travel/Exposure Within Last Year Have you traveled outside the [place] in the last year?: No - Additonal Travel Details Have you been exposed to anyone with a communicable illness?: No - Travel Symptoms Symptom Screening: None Review of Systems Constitutional: Reports: Chills, Malaise. Denies: Fever Eyes: Denies: Eye discharge ENT: Denies: Congestion Respiratory: Denies: Cough Cardiovascular: Denies: Arrhythmia, Chest pain, Dyspnea on exertion, Palpitations Endocrine: Denies: Fatigue Gastrointestinal: Denies: Nausea Genitourinary: Denies: Dysuria Musculoskeletal: Reports: Arthralgia Skin: Denies: Bruising Neurological: Reports: Abnormal gait Past Medical History - SOCIAL HISTORY Smoking Status: Former smoker Alcohol Use: None Drug Use: None - RESPIRATORY Hx Respiratory Disorders: No - CARDIOVASCULAR Hx Cardio Disorders: Yes Hx Heart Attack: Yes Comment:: small blood clot to leg - NEURO Hx Neuro Disorders: Yes Hx of Migraines: Yes Hx Neuropathy: Yes - GI Hx GI Disorders: Yes Hx Reflux: Yes Hx Hiatal Hernia: Yes - Hx Genitourinary Disorders: No - ENDOCRINE Hx Endocrine Disorders: Yes Hx Diabetes: Yes Comment:: 188 GLUCOSE CHECKED TODAY - MUSCULOSKELETAL Hx Musculoskeletal Disorders: No Hx Arthritis: Yes - PSYCH Hx Psych Problems: No - HEMATOLOGY/ONCOLOGY Hx Hematology/Oncology Disorders: No Hx Clotting Problems: Yes (STATES SM ONE IN LEG BUT HAS NO TREATMENT) Family Medical History Any Significant Family History?: No H&P Meds/Allergies - Allergies Allergies: Allergies Allergy/AdvReac Type Severity Reaction Status Date / Time No Known Drug Allergies Allergy Verified 07/24/19 14:56 - Home Medications Home Medications Medication Instructions Recorded Confirmed Last Taken Lisinopril 10 mg PO DAILY 07/25/19 07/25/19 Unknown - Active Medications Active Medications: Current Medications Hydrocodone Bitart/Acetaminophen (Lenox 5mg/325mg) 1 each PO Q6H PRN PRN Reason: PAIN - MILD (1-4) Stop: 07/30/19 23:59 Last Admin: 07/25/19 02:29 Dose: 2 each Documented by: Hydrocodone Bitart/Acetaminophen (Lenox 5mg/325mg) 2 each PO Q6H PRN PRN Reason: PAIN - MOD TO SEVERE (5-10) Last Admin: 07/25/19 09:35 Dose: 2 each Documented by: Aspirin (Aspirin Chewable) 81 mg PO DAILY [facility] Last Admin: 07/25/19 09:23 Dose: 81 mg Documented by: Atorvastatin Calcium (Lipitor) 20 mg PO DAILY [facility] Last Admin: 07/25/19 09:23 Dose: 20 mg Documented by: Gabapentin (Neurontin) 100 mg PO TID [facility] Last Admin: 07/25/19 09:24 Dose: 100 mg Documented by: Glimepiride (Amaryl) 8 mg PO DAILY [facility] Last Admin: 07/25/19 09:24 Dose: 8 mg Documented by: Hydromorphone HCl (Dilaudid) 1 mg IVP Q4H PRN PRN Reason: PAIN - MODERATE (5-7) Last Admin: 07/25/19 03:24 Dose: 1 mg Documented by: VANCOMYCIN 1.5GM/300ML PREMIX (Vancomycin 1.5 Gram/300 Ml Bag) 1.5 gm in 300 mls @ 200 mls/hr IVPB Q18H [facility] Last Admin: 07/25/19 10:38 Dose: 300 mls/hr Documented by: Ampicillin Sodium/Sulbactam (Sodium 3 g/ Sodium Chloride) 100 mls @ 200 mls/hr IVPB Q6H [facility] Last Infusion: 07/25/19 10:39 Dose: Infused Documented by: Lactated Ringer's () 1,000 mls @ 125 mls/hr IV .Q8H PRN PRN Reason: LARGE VOLUME IV Last Infusion: 07/24/19 22:52 Dose: Infused Documented by: Losartan Potassium (Losartan Potassium) 100 mg PO DAILY [facility] Last Admin: 07/25/19 09:23 Dose: 100 mg Documented by: Metformin HCl (Glucophage Ir) 1,000 mg PO BID [facility] Last Admin: 07/25/19 09:23 Dose: 1,000 mg Documented by: Non-Formulary Medication (Lisinopril) 1 tab PO DAILY [facility] Ondansetron HCl (Zofran) 4 mg IVP Q4H PRN PRN Reason: NAUSEA Patient Own Med: Insulin Degludec [ Tresiba Flextouch U- 100 50 each SC DAILY [facility] Physical Exam - Vital Signs Vital Signs: Vital Signs - Last 24 Hrs Temp Pulse Pulse Resp BP BP Pulse Ox 07/25/19 09:00 98.4 F 73 20 120/65 97 07/25/19 05:00 98.2 F 82 18 149/70 95 07/24/19 23:00 98.1 F 74 18 156/77 96 07/24/19 22:00 69 136/69 07/24/19 21:46 98.1 F 69 16 153/69 97 07/24/19 21:30 67 136/66 07/24/19 21:00 70 127/80 07/24/19 20:45 68 139/64 07/24/19 20:30 66 128/60 07/24/19 20:15 71 158/82 07/24/19 20:03 98.1 F 61 16 123/65 97 07/24/19 20:00 97.8 F 62 18 123/65 97 07/24/19 19:19 70 16 123/66 95 07/24/19 19:11 68 20 139/66 96 07/24/19 18:59 66 16 135/68 96 07/24/19 18:54 66 12 120/55 97 07/24/19 18:49 98.1 F 66 12 122/55 96 07/24/19 17:45 99.4 F 79 20 114/65 97 07/24/19 16:33 99.4 F 75 20 114/65 97 07/24/19 14:51 99.7 F H 76 20 143/83 98 - General General Appearance: Alert, Oriented x3, Cooperative, Mild distress Limitations: No limitations - Head Head exam: Atraumatic, Normocephalic - Eye Eye exam: Normal appearance - ENT ENT exam: Normal exam Throat exam: Normal inspection. negative: Tonsillar erythema, Tonsillar exudate - Neck Neck exam: Normal inspection, Full ROM. negative: Tenderness - Respiratory Respiratory exam: Normal lung sounds bilaterally. negative: Respiratory distress - Cardiovascular Cardiovascular Exam: Regular rate, Normal rhythm, Normal heart sounds Peripheral Pulses: 0: Dorsalis Pedis (R) (absent right popliteal pulse, 1+ right femoral pulse), 2+: Dorsalis Pedis (L) - GI/Abdominal GI/Abdominal exam: Soft, Normal bowel sounds. negative: Tenderness - Extremities Extremities exam: Normal capillary refill, Tenderness (There is significant tenderness to the dosal R foot and R lower leg. The R lower leg is not warm or erythematous. There is no crepitance to the R foot or leg. Right foot with significant post surgical swelling and warmth, sensation intact to deep stimulus but is decreased), Other (The patient has trace DP pulses bilaterally and no PT pulses. There is significant warmth to the dorsal R foot.). negative: Normal inspection (The R foot has significant erythema to the dorsal and plantar surfaces. There is an unroofed skin ulcer on the plantar surface at the base of the 4th toe. ), Calf tenderness, Full ROM, Pedal edema - Back Back exam: Reports: Normal inspection - Neurological Neurological exam: Alert. negative: Motor sensory deficit - Psychiatric Psychiatric exam: Anxious Results - Labs Result Diagrams: 07/25/19 06:28 07/25/19 06:28 Labs Last 24 Hours: Laboratory Results - last 24 hr 07/24/19 07/24/19 07/24/19 15:10 15:10 15:20 WBC 11.4 RBC 3.77 L Hgb 10.3 L Hct 32.5 L MCV 86.2 MCH 27.3 MCHC 31.7 L RDW 14.2 Plt Count 218 MPV 11.8 H Gran % 77.4 Lymphocytes % 12.2 L Monocytes % 9.4 H Eosinophils % 1.0 Basophils % 0.0 Absolute Neutrophils 8.86 Sodium 135 L Potassium 4.3 Chloride 99 Carbon Dioxide 22.0 Anion Gap 14.0 BUN 29 H Creatinine 1.5 H Estimated GFR 49 POC Glucose Random Glucose 188 H Lactic Acid 1.2 Uric Acid 6.80 Calcium 9.5 Total Bilirubin 0.40 Direct Bilirubin < 0.2 AST 17 ALT 17 Alkaline Phosphatase 72 C-Reactive Protein 13.70 H Total Protein 7.4 Albumin 4.2 07/24/19 07/25/19 07/25/19 19:15 05:00 06:28 WBC 9.4 RBC 3.44 L Hgb 9.4 L Hct 30.1 L MCV 87.5 MCH 27.3 MCHC 31.2 L RDW 14.1 Plt Count 183 MPV 11.3 H Gran % 79.6 Lymphocytes % 9.5 L Monocytes % 7.9 Eosinophils % 2.9 Basophils % 0.1 Absolute Neutrophils 7.45 Sodium Potassium Chloride Carbon Dioxide Anion Gap BUN Creatinine Estimated GFR POC Glucose 138 H 247 H Random Glucose Lactic Acid Uric Acid Calcium Total Bilirubin Direct Bilirubin AST ALT Alkaline Phosphatase C-Reactive Protein Total Protein Albumin 07/25/19 06:28 WBC RBC Hgb Hct MCV MCH MCHC RDW Plt Count MPV Gran % Lymphocytes % Monocytes % Eosinophils % Basophils % Absolute Neutrophils Sodium 136 Potassium 4.5 Chloride 104 Carbon Dioxide 20.0 L Anion Gap 12.0 BUN 27 H Creatinine 1.6 H Estimated GFR 46 POC Glucose Random Glucose 238 H Lactic Acid Uric Acid Calcium 8.8 Total Bilirubin Direct Bilirubin AST ALT Alkaline Phosphatase C-Reactive Protein Total Protein Albumin VTE H&P Assessment - Risk for VTE Risk for VTE: Yes Risk Level: High Risk Assessment Date: 07/25/19 Risk Assessment Time: 12:12 VTE Orders Placed or Will Be Placed: Yes Plan - Detailed Diagnosis and Plan (1) Diabetic foot infection Current Visit: Yes Status: Acute Base Code: E11.628 - TYPE 2 DIABETES MELLITUS WITH OTHER SKIN COMPLICATIONS; L08.9 - LOCAL INFECTION OF THE SKIN AND SUBCUTANEOUS TISSUE, UNSP Comment: 07/25/19 - WBC normal, CRP 13.7, uric acid normal - I & D of right plantar foot ulcer 07/24/19 - Unasyn 3gm q6hr - Vancomycin 1.5gm Q 18 hr- pharmacy to dose - Right foot wound and blood culture pending - CBC, CMP am - Right foot x-ray 07/24- soft tissue gas about 3rd and 4th toes, can't exclude osteomyelitis mid phalynx 4th toe - Arterial dopplers 07/24- multifocal atherosclerotic vascular disease with severe stenosis of comon femoral and popliteal arteries - Pain control- Dilaudid 1mg Q4hr PRN, Lenox 1-2 tab Q6hr PRN - IVF (2) Arterial insufficiency of lower extremity Current Visit: Yes Status: Acute Base Code: I73.9 - PERIPHERAL VASCULAR DISEASE, UNSPECIFIED Comment: 07/25/19 - Advise tranfer to [facility] for vascular surgery consult 2nd severe arterial stenosis right common femoral and popliteal arteries and s/p I&D- concern for d elayed healing an unresolved infection, limb stability (3) Diabetes type 2, controlled Current Visit: Yes Status: Acute Qualifiers: Diabetes mellitus long-term insulin use: without ocean transportation intermediary use Diabetes mellitus complication status: with skin complications Diabetes mellitus complication detail: with foot ulcer Qualified Code(s): E11.621 - Type 2 diabetes mellitus with foot ulcer; L97.509 - Non-pressure chronic ulcer of other part of unspecified foot with unspecified severity Base Code: E11.9 - TYPE 2 DIABETES MELLITUS WITHOUT COMPLICATIONS Comment: 07/25/19 - Metformin 1,000mg BID - Amaryl 8mg QD - Lisinopril 10mg QD - Losartan 100mg QD - Accu check AH/HS. FBS 138-->247-->238 - Renal insufficiency Cr 1.6, GFR 46 (4) DVT prophylaxis Current Visit: Yes Status: Acute Base Code: Z29.9 - ENCOUNTER FOR PROPHYLACTIC MEASURES, UNSPECIFIED Comment: 07/25/19 - Lovenox 40mg QD (5) Full code status Current Visit: Yes Status: Acute Base Code: Z78.9 - OTHER SPECIFIED HEALTH STATUS Comment: 07/25/19
[2019-07-25] MEDS ORDERED: LISINOPRIL 10 MG TABLET PO SCH (12:00)
--- NOTE | 2019-07-25 12:32 | Discharge Summary ---
Providers Discharge Summary Date: 07/25/19 Attending physician: Ryne Barba D.P.M. Primary care physician: JAMILA KATE D.O. Physical Exam - Vital Signs Vital Signs: Vital Signs - Last 24 Hrs Temp Pulse Pulse Resp BP BP Pulse Ox 07/25/19 09:00 98.4 F 73 20 120/65 97 07/25/19 05:00 98.2 F 82 18 149/70 95 07/24/19 23:00 98.1 F 74 18 156/77 96 07/24/19 22:00 69 136/69 07/24/19 21:46 98.1 F 69 16 153/69 97 07/24/19 21:30 67 136/66 07/24/19 21:00 70 127/80 07/24/19 20:45 68 139/64 07/24/19 20:30 66 128/60 07/24/19 20:15 71 158/82 07/24/19 20:03 98.1 F 61 16 123/65 97 07/24/19 20:00 97.8 F 62 18 123/65 97 07/24/19 19:19 70 16 123/66 95 07/24/19 19:11 68 20 139/66 96 07/24/19 18:59 66 16 135/68 96 07/24/19 18:54 66 12 120/55 97 07/24/19 18:49 98.1 F 66 12 122/55 96 07/24/19 17:45 99.4 F 79 20 114/65 97 07/24/19 16:33 99.4 F 75 20 114/65 97 07/24/19 14:51 99.7 F H 76 20 143/83 98 - General General Appearance: Alert, Oriented x3, Cooperative, Mild distress Limitations: No limitations - Head Head exam: Atraumatic, Normocephalic - Eye Eye exam: Normal appearance - ENT ENT exam: Normal exam Throat exam: Normal inspection. negative: Tonsillar erythema, Tonsillar exudate - Neck Neck exam: Normal inspection, Full ROM. negative: Tenderness - Respiratory Respiratory exam: Normal lung sounds bilaterally. negative: Respiratory distress - Cardiovascular Cardiovascular Exam: Regular rate, Normal rhythm, Normal heart sounds Peripheral Pulses: 0: Dorsalis Pedis (R) (absent right popliteal pulse, 1+ right femoral pulse), 2+: Dorsalis Pedis (L) - GI/Abdominal GI/Abdominal exam: Soft, Normal bowel sounds. negative: Tenderness - Extremities Extremities exam: Normal capillary refill, Tenderness (There is significant tenderness to the dosal R foot and R lower leg. The R lower leg is not warm or erythematous. There is no crepitance to the R foot or leg. Right foot with significant post surgical swelling and warmth, sensation intact to deep stimulus but is decreased), Other (The patient has trace DP pulses bilaterally and no PT pulses. There is significant warmth to the dorsal R foot.). negative: Normal inspection (The R foot has significant erythema to the dorsal and plantar surfaces. There is an unroofed skin ulcer on the plantar surface at the base of the 4th toe. ), Calf tenderness, Full ROM, Pedal edema - Back Back exam: Reports: Normal inspection - Neurological Neurological exam: Alert. negative: Motor sensory deficit - Psychiatric Psychiatric exam: Anxious Hospitalization - Hospitalization Admission Diagnosis: 1. Acute R Foot Deep Space Infection. - Problem List/Discharge Diagnosis (1) Diabetic foot infection Status: Acute Base Code: E11.628 - TYPE 2 DIABETES MELLITUS WITH OTHER SKIN COMPLICATIONS; L08.9 - LOCAL INFECTION OF THE SKIN AND SUBCUTANEOUS TISSUE, UNSP Comment: 07/25/19 - WBC normal, CRP 13.7, uric acid normal - I & D of right plantar foot ulcer 07/24/19 - Unasyn 3gm q6hr - Vancomycin 1.5gm Q 18 hr- pharmacy to dose - Right foot wound and blood culture pending - CBC, CMP am - Right foot x-ray 07/24- soft tissue gas about 3rd and 4th toes, can't exclude osteomyelitis mid phalynx 4th toe - Arterial dopplers 07/24- multifocal atherosclerotic vascular disease with severe stenosis of comon femoral and popliteal arteries - Pain control- Dilaudid 1mg Q4hr PRN, Empire 1-2 tab Q6hr PRN - IVF (2) Arterial insufficiency of lower extremity Status: Acute Base Code: I73.9 - PERIPHERAL VASCULAR DISEASE, UNSPECIFIED Comment: 07/25/19 - Advise tranfer to [facility] for vascular surgery consult 2nd severe arterial stenosis right common femoral and popliteal arteries and s/p I&D- concern for delayed healing an unresolved infection, limb stability. Case discussed with Dr. Trevino and accepted for transfer (3) Diabetes type 2, controlled Status: Acute Discharge Diagnosis: Diabetes mellitus correction insulin use: without correction use Diabetes mellitus complication status: with skin complications Diabetes mellitus complication detail: with foot ulcer Qualified Code(s): E11.621 - Type 2 diabetes mellitus with foot ulcer; L97.509 - Non-pressure chronic ulcer of other part of unspecified foot with unspecified severity Base Code: E11.9 - TYPE 2 DIABETES MELLITUS WITHOUT COMPLICATIONS Comment: 07/25/19 - Metformin 1,000mg BID - Amaryl 8mg QD - Lisinopril 10mg QD - Losartan 100mg QD - Accu check AH/HS. 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 Patient is a type 2 diabetic, had an ulcer to plantar surface of base of right 4th toe unroofed by Dr. Barba 07/24 and subsequently sent to ED due to extensive soft tissue infection. Patient noticed right foot redness, chills, pain about 2 days prior to being seen. 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 CRP 13.7, uric acid 6.8, Hgb 9.4, BUN 29, Cr 1.6, GFR 46. Foot x-ray- soft tissue gas about 3rd and 4th toes not excluding early osteomyelitis mid phalynx 4th toe. Arterial doppler RLE shows multifocal arherosclerotic vascular disease with severe stenosis of common femoral and popliteal arteries. EKG with no acute changes from previous. Case was discussed with Dr. Barba and was taken to OR for right foot I&D and admitted for IV antibiotics and medical management. 07/25/19 1000- resting in bed, appears uncomfortable. Reports his pain is the same as it has been for the past couple days, rating 6-7/10, having chills and feels feverish (no fever currently). Dressing intact to right foot. Did discuss with him and his concerns regarding healing and the severe stenosis of right leg arteries and how that may impact healing and infection resolution. and patient are in agreement for transfer to [facility] for vascular surgery consult. PCP: Dr. Cervantes Cardiology: Dr. Gonzalez CVTS: Dr. Ta Procedures: Imaging and X-Rays 07/24/19 14:56 ARTERIAL DOPPLER LOWER EXT RT [US] Stat FOOT, RIGHT 3 VIEWS [RAD] Stat Abnormal Labs: Abnormal Lab Results 07/24/19 07/24/19 07/24/19 Range/Units 15:10 15:10 19:15 RBC 3.77 L (4.40-5.70) M/uL Hgb 10.3 L (14.0-18.0) gm/dl Hct 32.5 L (42.0-52.0) % MCHC 31.7 L (32-36) g/dl MPV 11.8 H (7.4-10.4) fl Lymphocytes % 12.2 L (16-45) % Monocytes % 9.4 H (0-9) % Sodium 135 L (136-145) mmol/L Carbon Dioxide (22-29) mmol/L BUN 29 H (8-23) mg/dL Creatinine 1.5 H (0.7-1.2) mg/dL POC Glucose 138 H (70-110) mg/dL Random Glucose 188 H (74-109) mg/dL C-Reactive Protein 13.70 H (<0.5) mg/dL 07/25/19 07/25/19 07/25/19 Range/Units 05:00 06:28 06:28 RBC 3.44 L (4.40-5.70) M/uL Hgb 9.4 L (14.0-18.0) gm/dl Hct 30.1 L (42.0-52.0) % MCHC 31.2 L (32-36) g/dl MPV 11.3 H (7.4-10.4) fl Lymphocytes % 9.5 L (16-45) % Monocytes % (0-9) % Sodium (136-145) mmol/L Carbon Dioxide 20.0 L (22-29) mmol/L BUN 27 H (8-23) mg/dL Creatinine 1.6 H (0.7-1.2) mg/dL POC Glucose 247 H (70-110) mg/dL Random Glucose 238 H (74-109) mg/dL C-Reactive Protein (<0.5) mg/dL Condition at Discharge: (2) Stable Discharge Medications - Discharge Medications Home Medications: Ambulatory Orders Losartan Potassium 100 tab PO DAILY 02/05/16 [Last Taken 09/15/18] Metformin HCl 1,000 mg PO BID 02/05/16 [Last Taken 09/15/18] Aspirin Chewable 81 mg PO DAILY 03/07/18 [Last Taken 09/15/18] Gabapentin [Neurontin] 100 mg PO TID 03/07/18 [Last Taken 09/15/18] Glimepiride [Amaryl] 8 mg PO DAILY 03/07/18 [Last Taken 09/15/18] Insulin Degludec [Tresiba Flextouch U-100] 50 unit SQ DAILY 03/07/18 [Last Taken 09/15/18] Meloxicam 7.5 mg PO BID 03/07/18 [Last Taken 09/15/18] Atorvastatin Calcium [Lipitor] 20 mg PO QD tab 02/20/19 [Last Taken Unknown] Vitamin D3 1 tab PO DAILY 02/20/19 [Last Taken Unknown] Lisinopril 10 mg PO DAILY 07/25/19 [Last Taken Unknown] Discharge Plan - Discharge Instructions Activity at Discharge: Increase Activity as Tolerated Diet at Discharge: Diabetic Diet Wound Primary Dressing Type: Wet to dry beginning 07/26/19 Quality Measures - Quality Measures Quality Measures: Advance Directives, Documentation of Current Medications in Medical Record, Elder Maltreatment Screen and Follow-Up Plan, Screening for High Blood Pressure and F/U Documented - Current Medications Quality Measure: Measure #130: Documentation of Current Medications Documentation of Current Medications: <Current Medications Documented/Reviewed> [G8485] - Blood Pressure Screening Quality Measure: Screening for High Blood Pressure and Follow-Up Documented Does Patient Have Any of the Following: No Blood Pressure Classification: Pre-Hypertensive BP Reading Systolic Measurement: 143 Diastolic Measurement: 83 Screening for High Blood Pressure: < Pre-Hypertensive BP, F/U Documented > [G8950] Pre-Hypertensive Follow-up Interventions: Follow-up with rescreen every year. - Advance Directives Quality Measure: Measure #47: Care Plan Advance Directives Established: No Advance Directives Information Provided To Patient: No Advance Directives on File: No Living Will: No Power of Buggy Man: No Advance Care Planning: <Care Plan/Decision Maker Documented; Discussed & Documented> [5483F] - Elder Abuse Suspicion Index Screening: Elder Abuse Suspicion Index Screening Rely on people for bathing, dressing, shopping, banking, etc: No Prevented from getting food, clothes, medication, etc: No Made to feel shamed or threatened by someone: No Forced to sign papers or use money against will: No Feel afraid, touched in ways not wanted or hurt physically: No Poor eye contact, withdrawn, malnourished, cuts or bruises: No Screening Result: Negative result EASI Reference Information: Masha MODI, Krishna C, Yaritza D, Shahriar Encinas.Development and validation of a tool to assist physicians identification of elder abuse: The Elder Abuse Suspicion Index (EASI ). Journal of Elder Abuse and Neglect, 2008; 20 (3): 276-300. - Elder Maltreatment Screen Quality Measures: Elder Maltreatment Screen and Follow-Up Plan Elder Maltreatment Screen: <Negative, No Follow-Up Plan Required> [G3600]
[2019-07-25] MEDS ORDERED: AMPICILLIN SODIUM/SULBACTAM NA 3 G in 0.9 % SODIUM CHLORIDE 100ML 100 ML IVPB SCH (17:00)
[2019-07-26] MEDS ORDERED: ENOXAPARIN 40 MG/0.4 ML SYR SQ SCH (10:00)
== END 2019-07-25 17:30 | disposition short-term general hospital (02) | DRG 638 ==
LOC: MEDSURG 14:50 → ER 14:50 → SUR 17:49 → UNDOADMIN 19:45 → MEDSURG 19:45 → ER 19:45 → MEDSURG 19:45 → EDSTATUS 19:49 → UNDODISIN 07-25 17:30
PROVIDERS: ADMIT Internal Medicine; ATTEND Internal Medicine
DX: E11.628 Type 2 diabetes mellitus with other skin complications (principal); E11.52 Type 2 diabetes mellitus with diabetic peripheral angiopathy with gangrene; L08.9 Local infection of the skin and subcutaneous tissue, unspecified; I73.9 Peripheral vascular disease, unspecified; I77.1 Stricture of artery; I82.409 Acute embolism and thrombosis of unspecified deep veins of unspecified lower extremity; I25.2 Old myocardial infarction; K21.9 Gastro-esophageal reflux disease without esophagitis; E03.9 Hypothyroidism, unspecified; M19.90 Unspecified osteoarthritis, unspecified site; Z87.891 Personal history of nicotine dependence; Z29.9 Encounter for prophylactic measures, unspecified
CPT/HCPCS: 84550; 83605; 85025; 80076; 86140; 80048; 36416; 82948; 73630; 93926; 93005; 93010; J0295; J2405; J3010; J1170; J3370; 96365; 96366; 96374; 96375; 99223; 99285; J3490; J7120

== ENCOUNTER 2019-08-26 15:20 | Emergency (ER) | payer MEDICARE ==
--- NOTE | 2019-08-26 15:50 | Emergency Department Record ---
History of Present Illness - General Stated Complaint: CAN'T POOP/ PAIN WHEN HE DOES Time Seen by Provider: 08/26/19 15:48 Source: Patient, Family () Mode of Arrival: Ambulatory Limitations: No limitations - History of Present Illness Initial comments: Pt from home with for issues with BM. states he has been having BMs thru the past few day but he has pain when he passes the stool. Pain at his anus. No blood noted. Used suppository yesterday for BM and had less pains with that. Pt has multiple medical issues and has been on narcotic pain meds recently. No vomiting. Has had colonoscopy in past few years here at [facility] by pt history. - Related Data Home Medications Medication Instructions Recorded Confirmed Last Taken Oxycodone HCl/Acetaminophen 1 tab PO Q8H PRN 08/26/19 08/26/19 08/26/19 [Percocet 10mg/325mg] Tamsulosin HCl [Flomax] 0.4 mg PO ASDIR 08/26/19 08/26/19 08/26/19 Previous Rx's Medication Instructions Recorded Hydrocortisone/Pramoxine 10 gm RC DAILY 10 Days #10 foam 08/26/19 [Proctofoam-Hc Foam] Polyethylene Glycol 3350 [Miralax] 1 packet PO DAILY 12 Days #12 08/26/19 packet Allergies Allergy/AdvReac Type Severity Reaction Status Date / Time No Known Drug Allergies Allergy Verified 08/26/19 15:54 Review of Systems Constitutional: Denies: Chills, Fever Eyes: Denies: Eye discharge ENT: Denies: Congestion Respiratory: Denies: Cough Cardiovascular: Denies: Chest pain Endocrine: Denies: Fatigue Gastrointestinal: Reports: As per HPI. Denies: Nausea, Vomiting Genitourinary: Denies: Dysuria Musculoskeletal: Denies: Arthralgia Skin: Denies: Bruising Neurological: Denies: Abnormal gait Psychiatric: Denies: Anxiety Hematological/Lymphatic: Denies: Anemia Past Medical History - SOCIAL HISTORY Smoking Status: Former smoker Drug Use: None - RESPIRATORY Hx Respiratory Disorders: No - CARDIOVASCULAR Hx Cardio Disorders: Yes Hx Heart Attack: Yes Comment:: small blood clot to leg - NEURO Hx Neuro Disorders: Yes Hx of Migraines: Yes Hx Neuropathy: Yes - GI Hx GI Disorders: Yes Hx Reflux: Yes Hx Hiatal Hernia: Yes - Hx Genitourinary Disorders: No - ENDOCRINE Hx Endocrine Disorders: Yes Hx Diabetes: Yes Comment:: 188 GLUCOSE CHECKED TODAY - MUSCULOSKELETAL Hx Musculoskeletal Disorders: No Hx Arthritis: Yes - PSYCH Hx Psych Problems: No - HEMATOLOGY/ONCOLOGY Hx Hematology/Oncology Disorders: No Hx Clotting Problems: Yes (STATES SM ONE IN LEG BUT HAS NO TREATMENT) Physical Exam - General General Appearance: Alert, Oriented x3, Cooperative, No acute distress - Head Head exam: Normal inspection - Eye Eye exam: PERRL - ENT ENT exam: Mucous membranes moist Ear exam: Normal external inspection Nasal Exam: Normal inspection Mouth exam: Normal external inspection - Neck Neck exam: Normal inspection, Full ROM - Respiratory Respiratory exam: Normal lung sounds bilaterally. negative: Respiratory distress - Cardiovascular Cardiovascular Exam: Regular rate, Normal rhythm - GI/Abdominal GI/Abdominal exam: Soft, Normal bowel sounds. negative: Distended, Guarding, Tenderness - Rectal Rectal exam: Heme (-) stool, Other (soft brown stool at anus. No gross blood or fissue seen. ). negative: Hemorrhoids - Extremities Extremities exam: Other (right foot clean bandage from recent amputation. ) - Neurological Neurological exam: Alert, Oriented X3 - Psychiatric Psychiatric exam: Normal affect, Normal mood - Skin Skin exam: Normal color Course - Reevaluation(s) Reevaluation #1: 08/26/19 16:38 Xray with stool throughout the colon to the rectum with no evidence of obstruction. Discussed using Miralax at home and proctofoam for pain. Needs to see Primary Physician regarding possible rectal fissure. Disposition Disposition: Discharge Clinical Impression: Rectal or anal pain, Increased stool volume Condition: (2) Stable Instructions: Constipation (ED), Anal Fissure (ED) Additional Instructions: Use Miralax one cap full in juice once daily. Protofoam for rectal pain. Keep perianal area clean. See your doctor in 2 days Return to the ED as needed. Prescriptions: Polyethylene Glycol 3350 [Miralax] 1 packet PO DAILY 12 Days #12 packet Hydrocortisone/Pramoxine [Proctofoam-Hc Foam] 10 gm RC DAILY 10 Days #10 foam Time of Disposition: 16:42 Quality - Quality Measures Quality Measures: N/A - Blood Pressure Screening Does Patient Have Any of the Following: No Blood Pressure Classification: Hypertensive Reading Systolic Measurement: 171 Diastolic Measurement: 79 Screening for High Blood Pressure: < Pre-Hypertensive BP, F/U Documented > [G8950] Pre-Hypertensive Follow-up Interventions: Follow-up with rescreen every year.
[2019-08-26] MEDS ORDERED: LIDOCAINE VISC 2% 15ML SOLUTION MM ONE (16:49)
--- NOTE | 2019-08-26 16:58 | RADIOLOGY REPORT ---
EXAMINATION: Abdomen Single View EXAM DATE: 08/26/2019 4:36 PM TECHNIQUE: Single view INDICATION: constipation COMPARISON: None FINDINGS: 4 AP supine images. Nonspecific bowel gas pattern, with gas seen in both small and large bowel loops. No abnormal dilatation. Moderate to large stool volume. No suspicious mass effect or calcification. IMPRESSION: Nonspecific bowel gas pattern. Moderate to large stool volume. Dictated by: Gregg Dickey MD on 08/26/2019 4:55 PM. .
== END 2019-08-26 16:50 | disposition home or self-care (01) ==
LOC: ER 15:20
DX: K62.89 Other specified diseases of anus and rectum (principal); R19.5 Other fecal abnormalities; I25.2 Old myocardial infarction; Z87.891 Personal history of nicotine dependence
CPT/HCPCS: 74018; 99283

== ENCOUNTER 2019-11-04 13:38 | Observation (INO) | payer MEDICARE ==
--- NOTE | 2019-11-04 14:42 | Emergency Department Record ---
History of Present Illness - General Chief complaint: Lower Extremity Pain Stated complaint: R FOOT RED/TEMP Time Seen by Provider: 11/04/19 14:33 Source: Patient Mode of Arrival: Wheelchair Limitations: No limitations - History of Present Illness Initial comments: 69 yo male presents with subjective fevers, chills, shaking, redness, swelling and pain in the foot that he states has had several surgeries recently. He states his last 4 surgeries were at [facility] with Dr Hartley. He states he has been doing very well with the healing. The onset of today's symptoms was this morning. He denies any drainage or injury at home. He reports he is a diabetic. No cough, shortness of breath, nausea or vomiting. No diarrhea. His first surgery was in July with Dr Barba. He was then transferred to [facility] for additional care due to PAD and infection. Location: Right, Foot History of Same: No Severity scale (1-10): 4 Quality: Aching Consistency: Constant Improves with: Nothing Worsens with: Nothing - Related Data Previous Rx's Medication Instructions Recorded Hydrocortisone/Pramoxine 10 gm RC DAILY 10 Days #10 foam 08/26/19 [Proctofoam-Hc Foam] Allergies Allergy/AdvReac Type Severity Reaction Status Date / Time No Known Drug Allergies Allergy Verified 11/04/19 14:06 Travel/Exposure Screening - Travel/Exposure Within Last 30 Days Have you traveled within the last 30 days?: No - Additonal Travel/Exposure Details Have you been exposed to anyone with a communicable illness?: No Review of Systems Constitutional: Reports: Chills, Fever, Malaise, Weakness Eyes: Denies: Eye discharge ENT: Denies: Congestion, Throat pain Respiratory: Denies: Cough, Dyspnea, Hemoptysis, Stridor, Wheezes Cardiovascular: Denies: Chest pain, Palpitations, Syncope Endocrine: Denies: Fatigue, Polydipsia, Polyuria Gastrointestinal: Denies: Abdominal pain, Diarrhea, Nausea, Vomiting Genitourinary: Denies: Dysuria, Frequency, Hematuria Musculoskeletal: Reports: As per HPI, Arthralgia Skin: Reports: As per HPI, Change in color Neurological: Reports: Weakness. Denies: Headache Psychiatric: Denies: Anxiety Hematological/Lymphatic: Denies: Easy bleeding, Easy bruising Past Medical History - SOCIAL HISTORY Smoking Status: Former smoker Alcohol Use: None Drug Use: None - RESPIRATORY Hx Respiratory Disorders: No - CARDIOVASCULAR Hx Cardio Disorders: Yes Hx Heart Attack: Yes Comment:: small blood clot to leg - NEURO Hx Neuro Disorders: Yes Hx of Migraines: Yes Hx Neuropathy: Yes - GI Hx GI Disorders: Yes Hx Reflux: Yes Hx Hiatal Hernia: Yes - Hx Genitourinary Disorders: No - ENDOCRINE Hx Endocrine Disorders: Yes Hx Diabetes: Yes - MUSCULOSKELETAL Hx Musculoskeletal Disorders: Yes Hx Arthritis: Yes - PSYCH Hx Psych Problems: No - HEMATOLOGY/ONCOLOGY Hx Hematology/Oncology Disorders: No Hx Clotting Problems: Yes (STATES SM ONE IN LEG BUT HAS NO TREATMENT) Family Medical History Any Significant Family History?: No Physical Exam - General General Appearance: Alert, Oriented x3, Cooperative, No acute distress Limitations: No limitations - Head Head exam: Atraumatic, Normal inspection - Eye Eye exam: Normal appearance - ENT ENT exam: Normal exam Ear exam: Normal external inspection Nasal Exam: Normal inspection Mouth exam: Normal external inspection - Neck Neck exam: Normal inspection - Respiratory Respiratory exam: Normal lung sounds bilaterally. negative: Accessory muscle use, Decreased breath sounds, Respiratory distress, Rhonchi, Stridor, Wheezes - Cardiovascular Cardiovascular Exam: Regular rate, Normal rhythm, Normal heart sounds Peripheral Pulses: 1+: Dorsalis Pedis (R) (Warm foot, ), 2+: Radial (R), Radial (L) - GI/Abdominal GI/Abdominal exam: Soft - Rectal Rectal exam: Deferred - exam: Deferred - Extremities Extremities exam: Full ROM, Joint swelling, Normal capillary refill, Tenderness. negative: Normal inspection, Calf tenderness, Pedal edema Image of Feet: 1 - Post op flap intact, granulation tissue on the edges, no sign of drainage or deterioration of the flap, mild erytema at the distal foot and medial and lateral sides. Mildly warm. No coolness to suggest arterial insufficiency. No blisters or ulcerations. - Back Back exam: Reports: Full ROM - Neurological Neurological exam: Alert, Oriented X3 - Psychiatric Psychiatric exam: Normal affect, Normal mood. negative: Agitated, Anxious - Skin Skin exam: Erythema (foot as noted above) Course Vital Signs 11/04/19 14:00 Temperature 98.5 F Pulse Rate 95 H Respiratory 20 Rate Blood Pressure 145/77 Pulse Ox 97 - Reevaluation(s) Reevaluation #1: 11/04/19 15:28 The CBC was reviewed Normal WBC, Chronic stable anemia The Renal function is normal The CRP is 6.7 EMR reviewed 10-20-2019 Vascular surgery note. SP transmetatarsal amputation Last vascular lab normal FREDY He is following in the wound clinic several days a week 11/04/19 16:06 The XR was reviewed No gas or signs of osteo I recommended to the patient admission for IV antibiotics. The patient strongly wishes to be admitted to [facility]. I do not seen an immediate indication for transfer to [facility]. He will be admitted on IV antibiotics. The case was discussed with Dr Orlando for admission on Unasyn and Vancomycin. 11/04/19 17:08 Dr Orlando request MRI tonight given it is present tonight at [facility] Order placed 11/04/19 17:47 Medical Decision Making - Lab Data Result diagrams: 11/04/19 14:50 11/04/19 14:50 Disposition Disposition: Admit Clinical Impression: Diabetic foot infection Disposition: Still a Patient at [facility] Decision to Admit: Admit from ER Decision to Admit Date: 11/04/19 Decision to Admit Time: 16:08 Condition: (2) Stable Forms: Patient Portal Access Time of Disposition: 16:08 Quality - Quality Measures Quality Measures: N/A - Blood Pressure Screening Does Patient Have Any of the Following: Active Dx of HTN Blood Pressure Classification: Hypertensive Reading Systolic Measurement: 145 Diastolic Measurement: 77 Screening for High Blood Pressure: Patient Exclusion, Hx of HTN [G9744]
[2019-11-04] MEDS ORDERED: MORPHINE SULFATE 5 MG/ML VIAL IVP ONE (14:49)
[2019-11-04 14:59] LABS: ABSOLUTE NEUTROPHIL COUNT 6.98; BASO % 0.1 % (0-6); EOS % 0.8 % (0-6); HEMATOCRIT 30.8 % (42.0-52.0); HEMOGLOBIN 9.5 gm/dl (14.0-18.0); LYMPH % 11.5 % (16-45); MEAN CELL VOLUME 86.5 fl (81-97); MEAN CORPUSCULAR HGB CONC 30.8 g/dl (32-36); MEAN PLATELET VOLUME 11.7 fl (7.4-10.4); MONO % 7.6 % (0-9); PLATELET COUNT 205 K/uL (130-400); RED BLOOD COUNT 3.56 M/uL (4.40-5.70); WHITE BLOOD COUNT W/O DIFF 8.7 K/uL (4.2-12.2)
[2019-11-04 15:07] LABS: MEAN CORPUSCULAR HEMOGLOBIN 26.6 pg (27-33); RED CELL DISTRIBUTION WIDTH 16.5 % (11.5-14.5)
[2019-11-04 15:12] LABS: BLOOD UREA NITROGEN 24 mg/dL (8-23); CREATININE 1.1 mg/dL (0.7-1.2); EST GLOMERULAR FILTRATION RATE > 60 mL/min
[2019-11-04 15:13] LABS: TOTAL PROTEIN 7.4 g/dL (6.6-8.7)
[2019-11-04 15:15] LABS: GLUCOSE,RANDOM 108 mg/dL (74-109)
[2019-11-04 15:17] LABS: ALT/SGPT 11 U/L (<41); AST/SGOT 13 U/L (10.0-50.0)
[2019-11-04 15:18] LABS: ALB/GLOB RATIO 1.2 (1.1-1.8); ALKALINE PHOSPHATASE 63 U/L (40-129); C-REACTIVE PROTEIN 6.69 mg/dL (<0.5)
[2019-11-04] MEDS ORDERED: AMPICILLIN SODIUM/SULBACTAM NA 3 G in 0.9 % SODIUM CHLORIDE 100ML 100 ML IVPB ONE (15:23)
[2019-11-04] MEDS ORDERED: VANCOMYCIN 1.5GM/300ML PREMIX 1.5 GM/300 ML PIGGYBACK IVPB SCH ×2 (15:30→21:00)
[2019-11-04 15:33] LABS: ERYTHROCYTE SEDIMENTATION RATE 81 mm/hr (0-20)
--- NOTE | 2019-11-04 15:40 | RADIOLOGY REPORT ---
EXAMINATION: Right Foot, Minimum Three Views EXAM DATE: 11/04/2019 3:21 PM TECHNIQUE: AP, lateral, and oblique INDICATION: post op foot pain and redness COMPARISON: Right foot radiographs 07/24/2019 ENCOUNTER: Initial FINDINGS: Interim amputation at the level of the proximal metatarsal shafts. Moderate adjacent soft tissue swel ling. Osteopenia in the residual metatarsals and the adjacent tarsal bones. Definite lytic lesion or perios teal reaction is not seen. Prominent superior and inferior calcaneal spurs. Vascular calcifications. IMPRESSION: Moderate soft tissue swelling is seen at the distal end of the amputated foot. No definite lytic lesion or periosteal reaction seen. Consider MRI for further evaluation, if there is clinical concern for osteomyelitis. Dictated by: León Ba MD on 11/04/2019 3:25 PM. .
[2019-11-04] MEDS ORDERED: ONDANSETRON HCL IV 4 MG/2 ML VIAL IVP ONE (16:32)
[2019-11-04] MEDS ORDERED: TAMSULOSIN HCL 0.4 MG CAP.ER.24H PO SCH ×2 (18:53→22:00)
[2019-11-04] MEDS ORDERED: AMPICILLIN SODIUM/SULBACTAM NA 1.5 G in 0.9 % SODIUM CHLORIDE 100ML 100 ML IVPB SCH (18:53)
[2019-11-04] MEDS ORDERED: ATORVASTATIN 20 MG TABLET PO SCH (18:53)
[2019-11-04] MEDS ORDERED: MORPHINE SULFATE 5 MG/ML VIAL IVP PRN (18:53)
[2019-11-04] MEDS ORDERED: GLIMEPIRIDE 2 MG TABLET PO SCH (19:30)
[2019-11-04] MEDS: ACETAMINOPHEN 325 MG TAB PO PRN (20:00)
[2019-11-04] MEDS ORDERED: VANCOMYCIN HCL 1,500 MG in 0.9 % SODIUM CHLORIDE 500ML 500 ML IVPB ONE (21:15)
[2019-11-04] MEDS: METFORMIN 500 MG TABLET PO SCH (22:27)
[2019-11-04] MEDS: GABAPENTIN 100 MG CAPSULE PO SCH (22:28)
[2019-11-04] MEDS: MELOXICAM 7.5 MG TABLET PO SCH (22:28)
[2019-11-04] MEDS: PIPERACILLIN SODIUM/TAZOBACTAM 4.5 GM in 0.9 % SODIUM CHLORIDE 100ML 100 ML IVPB SCH (23:40)
[2019-11-05] MEDS: ACETAMINOPHEN 325 MG TAB PO PRN (03:46)
[2019-11-05] MEDS ORDERED: IBUPROFEN 400 MG TABLET PO ONE (05:08)
[2019-11-05] MEDS ORDERED: IBUPROFEN 400 MG TABLET PO PRN (05:27)
[2019-11-05] MEDS ORDERED: ACETAMINOPHEN 325 MG TAB PO ONE (05:27)
[2019-11-05] MEDS ORDERED: ACETAMINOPHEN 500 MG TABLET PO PRN (05:29)
[2019-11-05] MEDS: PIPERACILLIN SODIUM/TAZOBACTAM 4.5 GM in 0.9 % SODIUM CHLORIDE 100ML 100 ML IVPB SCH ×2 (05:42→10:43)
[2019-11-05 07:56] LABS: ABSOLUTE NEUTROPHIL COUNT 3.72; BASO % 0.2 % (0-6); EOS % 0.8 % (0-6); GRAN % 77.6 % (47-80); HEMATOCRIT 29.4 % (42.0-52.0); LYMPH % 13.5 % (16-45); MEAN CORPUSCULAR HEMOGLOBIN 26.3 pg (27-33); MEAN CORPUSCULAR HGB CONC 30.6 g/dl (32-36); MEAN PLATELET VOLUME 11.8 fl (7.4-10.4); MONO % 7.9 % (0-9); PLATELET COUNT 159 K/uL (130-400); RED BLOOD COUNT 3.42 M/uL (4.40-5.70); RED CELL DISTRIBUTION WIDTH 16.4 % (11.5-14.5); WHITE BLOOD COUNT W/O DIFF 4.8 K/uL (4.2-12.2)
[2019-11-05 08:09] LABS: C-REACTIVE PROTEIN 6.18 mg/dL (<0.5); CREATININE 1.3 mg/dL (0.7-1.2)
[2019-11-05] MEDS ORDERED: CHOLECALCIFEROL 1,000 UNIT TABLET PO SCH (10:00)
[2019-11-05] MEDS ORDERED: GLIMEPIRIDE 2 MG TABLET PO SCH (10:00)
[2019-11-05] MEDS ORDERED: LISINOPRIL 10 MG TABLET PO SCH (10:00)
[2019-11-05] MEDS ORDERED: INSULIN DEGLUDEC 50 UNIT SQ SCH (10:00)
[2019-11-05] MEDS ORDERED: LOSARTAN POTASSIUM 100 MG TABLET PO SCH (10:00)
[2019-11-05] MEDS ORDERED: ENOXAPARIN 40 MG/0.4 ML SYR SC SCH (10:00)
[2019-11-05] MEDS ORDERED: ASPIRIN 81 MG CHEWABLE TABLET PO SCH (10:00)
--- NOTE | 2019-11-05 10:22 | MRI REPORT ---
EXAMINATION: MRI OF THE RIGHT FOOT WITH AND WITHOUT IV CONTRAST EXAM DATE: 11/04/2019 7:11 PM TECHNIQUE: Axial pre and post fat sat T1, sagittal pre and post fat sat T1, coronal T2 spare and axi al T2 weighted images of the foot INDICATION: diabetic foot infection COMPARISON: Right foot radiographs performed on 11/04/2019 ENCOUNTER: Initial FINDINGS: The study is limited due to patient motion. This results in blurring and obscures fine detail. The patient has a midfoot amputation through the proximal aspect of the metatarsals. There is an ulce ration which overlies the base of the residual first metatarsal. Deep to this ulceration there is a s inus tract extending to the metatarsal. There is bone marrow edema and enhancement involving the resi dual metatarsal as well as the second metatarsal base. These findings are concerning for osteomyeliti s. There is a peripherally enhancing fluid collection involving the soft tissue stump extending later ally from the ulceration/sinus tract. The overall medial to lateral dimension of this fluid collectio n is approximately 5.5 cm. High-grade of the fluid collection is approximately 1.4 cm. Anterior poste rior dimension and up to 1.6 cm. This fluid collection is irregularly shaped. There is diffuse soft tissue edema about the foot. There is increased T2 signal involving the intrins ic muscles of the foot which is most likely due to chronic denervation. Calcaneal enthesopathy at the Achilles insertion and origin of the plantar fascia. Small ankle joint osteophytes. Mild insertional Achilles tendinosis and plantar fasciitis. Tenosynovitis of the flexor tendons and tendinosis of the peroneal tendons. IMPRESSION: 1. There is an ulceration overlying the amputation stump medially near the base of the residual firs t metatarsal. There is a tract extending into the bone of the metatarsal stump as well as laterally i n the soft tissues of the foot with associated edema and enhancement of the second metatarsal base. F indings are concerning for an abscess with osteomyelitis of the first and second metatarsal stumps. I f clinically feasible to obtain routine T1-weighted images would be beneficial to better evaluate the osseous signal intensity and architecture. The orange significant findings protocol was initiated at 11/05/2019 10:20 AM. Dictated by: Jesús Ureña MD on 11/05/2019 9:54 AM. .
[2019-11-05] MEDS: METFORMIN 500 MG TABLET PO SCH (10:39)
[2019-11-05] MEDS: GABAPENTIN 100 MG CAPSULE PO SCH (10:40)
[2019-11-05] MEDS: MELOXICAM 7.5 MG TABLET PO SCH (10:41)
--- NOTE | 2019-11-05 12:16 | History & Physical ---
History of Present Illness - Date of Service Date of Service for History & Physical: 11/05/19 - History of Present Illness Admitting Diagnosis: cellulitis History of Present Illness: PMHx: amputation of the R foot, chronic wound, HTN, BPH, HLD, DM ED course: 69 yo male presents with subjective fevers, chills, shaking, redness, swelling and pain in the foot that he states has had several surgeries recently. He states his last 4 surgeries were at [facility] with [place] Hartley. The onset of today's symptoms was this morning. He denies any drainage or injury at home. He reports he is a diabetic. His first surgery was in July with Dr Barba. He was then transferred to [facility] for additional care due to PAD and infection. Vitals: Abnormal labs: Na 134, K 4.6, Cr 1.1, CRP 6.69, ESR 81, Hb 9.5 (chronic) - no WBC elevation Abnormal vitals: BP 145/77 - afebrile. Given: Ampicillin/ subactam and vanco 1 dose of each Pt admitted for cellulitis. Hospital course (< 24 hours): - Pt was switched from ampicillin/sulbactam to zosym by myself for better pseudomonas coverage. - He received one dose of this prior to getting fever this AM. Vanco was given in ED. - Overnight pt had TMAX of 102, treated with ibuprofen and tylenol. He also received his 2nd scheduled dose of zosyn at this time. - Blood cultures were obtained in ED and also during fever. - Fever resolved over 2 hours. - CRP reduced this AM to 6.18 and electrolytes normalized. - MRI showed this AM that findings are concerning for abscess with osteomyelitis of the first and second metatarsal stumps. Travel/Exposure Screening - Travel/Exposure Within Last 30 Days Have you traveled within the last 30 days?: No - Travel/Exposure Within Last Year Have you traveled outside the [place] in the last year?: No - Additonal Travel/Exposure Details Have you been exposed to anyone with a communicable illness?: No - Travel Symptoms Symptom Screening: Fever (Subjective), Chills Review of Systems Constitutional: Denies: Chills, Fever, Malaise, Weakness Eyes: Denies: Eye discharge ENT: Denies: Congestion, Throat pain Respiratory: Denies: Cough, Dyspnea, Hemoptysis, Stridor, Wheezes Cardiovascular: Denies: Chest pain, Palpitations, Syncope Endocrine: Denies: Fatigue, Polydipsia, Polyuria Gastrointestinal: Denies: Abdominal pain, Diarrhea, Nausea, Vomiting Genitourinary: Denies: Dysuria, Frequency, Hematuria Musculoskeletal: Reports: As per HPI, Arthralgia Skin: Reports: As per HPI, Change in color Neurological: Denies: Headache, Weakness Psychiatric: Denies: Anxiety Hematological/Lymphatic: Denies: Easy bleeding, Easy bruising Past Medical History - SOCIAL HISTORY Smoking Status: Former smoker Alcohol Use: None Drug Use: None - RESPIRATORY Hx Respiratory Disorders: No - CARDIOVASCULAR Hx Cardio Disorders: Yes Hx Heart Attack: Yes Hx Hypertension: Yes Hx Vascular Disease: Yes Comment:: "small blood clot right leg" - NEURO Hx Neuro Disorders: Yes Hx of Migraines: Yes Hx Neuropathy: Yes - GI Hx GI Disorders: Yes Hx Reflux: Yes Hx Hiatal Hernia: Yes - Hx Genitourinary Disorders: Yes Comment:: recent hx of extended villa catheterization-on flomax - ENDOCRINE Hx Endocrine Disorders: Yes Hx Diabetes: Yes Hx Thyroid Disease: No - MUSCULOSKELETAL Hx Musculoskeletal Disorders: Yes Hx Arthritis: Yes - PSYCH Hx Psych Problems: No - HEMATOLOGY/ONCOLOGY Hx Hematology/Oncology Disorders: No Hx Clotting Problems: Yes Family Medical History Any Significant Family History?: No Hx Cancer: Father, Brother/Sister Hx Diabetes: Mother Hx Resp Disorders: Brother/Sister H&P Meds/Allergies - Allergies Allergies: Allergies Allergy/AdvReac Type Severity Reaction Status Date / Time No Known Drug Allergies Allergy Verified 11/04/19 14:06 - Home Medications Previous Rx's Medication Instructions Recorded Hydrocortisone/Pramoxine 10 gm RC DAILY 10 Days #10 foam 08/26/19 [Proctofoam-Hc Foam] - Active Medications Active Medications: Current Medications Acetaminophen (Tylenol 500mg Tab) 1,000 mg PO Q6H PRN PRN Reason: PAIN - MILD(1-4)/FEVER Last Admin: 11/05/19 10:42 Dose: 1,000 mg Documented by: Aspirin (Aspirin Chewable) 81 mg PO DAILY [facility] Last Admin: 11/05/19 10:40 Dose: 81 mg Documented by: Atorvastatin Calcium (Lipitor) 20 mg PO QD [facility] Last Admin: 11/04/19 22:28 Dose: 20 mg Documented by: Enoxaparin Sodium (Lovenox) 40 mg SC DAILY [facility] Last Admin: 11/05/19 10:41 Dose: 40 mg Documented by: Gabapentin (Neurontin) 100 mg PO TID [facility] Last Admin: 11/05/19 10:40 Dose: 100 mg Documented by: Glimepiride (Amaryl) 8 mg PO QAM [facility] Last Admin: 11/05/19 10:40 Dose: 8 mg Documented by: Piperacillin Sod/Tazobactam (Sod 4.5 gm/ Sodium Chloride) 100 mls @ 200 mls/hr IVPB Q6H [facility] Last Infusion: 11/05/19 11:54 Dose: Infused Documented by: VANCOMYCIN 1.5GM/300ML PREMIX (Vancomycin 1.5 Gram/300 Ml Bag) 1.5 gm in 300 mls @ 200 mls/hr IVPB Q18H [facility] Ibuprofen (Motrin 400mg) 800 mg PO Q8H PRN PRN Reason: FEVER >102 Lisinopril (Zestril) 10 mg PO DAILY [facility] Last Admin: 11/05/19 10:41 Dose: 10 mg Documented by: Losartan Potassium (Losartan Potassium) 100 mg PO DAILY [facility] Last Admin: 11/05/19 10:39 Dose: 100 mg Documented by: Meloxicam (Mobic) 7.5 mg PO BID [facility] Last Admin: 11/05/19 10:41 Dose: 7.5 mg Documented by: Metformin HCl (Glucophage Ir) 1,000 mg PO BID [facility] Last Admin: 11/05/19 10:39 Dose: 1,000 mg Documented by: Morphine Sulfate (Morphine Sulfate) 5 mg IVP Q4H PRN PRN Reason: PAIN - MILD (1-4) Stop: 11/11/19 18:54 Non-Formulary Medication (Insulin Degludec [Tresiba Flextouch U-100]) 50 unit SQ QAM [facility] Tamsulosin HCl (Flomax) 0.4 mg PO QHS [facility] Last Admin: 11/04/19 22:28 Dose: 0.4 mg Documented by: Vitamin D (Vitamin D3) 1,000 unit PO DAILY [facility] Last Admin: 11/05/19 10:42 Dose: 1,000 unit Documented by: Physical Exam - Vital Signs Vital Signs: Vital Signs - Last 24 Hrs Temp Pulse Pulse Resp BP BP Pulse Ox 11/05/19 08:49 16 11/05/19 08:30 98.0 F 20 11/05/19 08:12 71 16 101/52 98 11/05/19 04:45 102.8 F H 11/05/19 03:45 100.4 F H 85 18 131/94 96 11/04/19 22:00 99.0 F 11/04/19 18:53 100.2 F H 101 H 16 140/70 99 11/04/19 16:24 99.7 F H 100 H 18 129/68 98 11/04/19 14:00 98.5 F 95 H 20 145/77 97 - General General Appearance: Alert, Oriented x3, Cooperative, No acute distress Limitations: No limitations - Head Head exam: Atraumatic, Normocephalic, Normal inspection - Eye Eye exam: Normal appearance - ENT ENT exam: Normal exam Ear exam: Normal external inspection Nasal Exam: Normal inspection Mouth exam: Normal external inspection - Neck Neck exam: Normal inspection - Respiratory Respiratory exam: Normal lung sounds bilaterally. negative: Accessory muscle use, Decreased breath sounds, Respiratory distress, Rhonchi, Stridor, Wheezes - Cardiovascular Cardiovascular Exam: Regular rate, Normal rhythm, Normal heart sounds Peripheral Pulses: 2+: Radial (R), Radial (L) - GI/Abdominal GI/Abdominal exam: Soft. negative: Distended - Rectal Rectal exam: Deferred - exam: Deferred - Extremities Extremities exam: Full ROM, Joint swelling, Normal capillary refill, Tenderness. negative: Normal inspection, Calf tenderness, Pedal edema Image of Feet: 1 - s/p amputation to the midfoot. No digits are left. 2 open wounds noted, serosanguinous drainage noted from the medial wound. very foul smelling. Mild erythema noted of the foot within marked region. Medial Ulcer has white tissue, possibly pus/ vs granulation tissue. lateral wound dry. - Back Back exam: Reports: Full ROM - Neurological Neurological exam: Alert, Oriented X3 - Psychiatric Psychiatric exam: Normal affect, Normal mood. negative: Agitated, Anxious - Skin Skin exam: Erythema (foot as noted above) Results - Labs Result Diagrams: 11/05/19 07:47 11/05/19 07:47 Labs Last 24 Hours: Laboratory Results - last 24 hr 11/04/19 11/04/19 11/05/19 14:50 14:50 07:47 WBC 8.7 4.8 RBC 3.56 L 3.42 L Hgb 9.5 L 9.0 L Hct 30.8 L 29.4 L MCV 86.5 86.0 MCH 26.6 L 26.3 L MCHC 30.8 L 30.6 L RDW 16.5 H 16.4 H Plt Count 205 159 MPV 11.7 H 11.8 H Gran % 80.0 77.6 Neutrophils % Not Reportable Lymphocytes % 11.5 L 13.5 L Monocytes % 7.6 7.9 Eosinophils % 0.8 0.8 Basophils % 0.1 0.2 Absolute Neutrophils 6.98 3.72 Lymphocytes Not Reportable Monocytes Not Reportable ESR 81 H Sodium 134 L Potassium 4.6 H Chloride 99 Carbon Dioxide 21.0 L Anion Gap 14.0 BUN 24 H Creatinine 1.1 Estimated GFR > 60 Random Glucose 108 Calcium 9.3 Total Bilirubin 0.30 AST 13 ALT 11 Alkaline Phosphatase 63 C-Reactive Protein 6.69 H Total Protein 7.4 Albumin 4.0 Globulin 3.4 Albumin/Globulin Ratio 1.2 11/05/19 07:47 WBC RBC Hgb Hct MCV MCH MCHC RDW Plt Count MPV Gran % Neutrophils % Lymphocytes % Monocytes % Eosinophils % Basophils % Absolute Neutrophils Lymphocytes Monocytes ESR Sodium 137 Potassium 4.5 Chloride 105 Carbon Dioxide 20.0 L Anion Gap 12.0 BUN 22 Creatinine 1.3 H Estimated GFR 58 Random Glucose 142 H Calcium 8.9 Total Bilirubin AST ALT Alkaline Phosphatase C-Reactive Protein 6.18 H Total Protein Albumin Globulin Albumin/Globulin Ratio VTE H&P Assessment - Risk for VTE Risk for VTE: Yes Risk Level: High Risk Assessment Date: 11/05/19 Risk Assessment Time: 12:31 VTE Orders Placed or Will Be Placed: Yes Plan - Inpatient Certification Inpatient Certification: Admit to inpatient care: Based on my medical assessment, after consideration of patient's risk factors (age, co-morbidities and patient presenting symptoms and acuity), I expect that this patient will remain in the hospital greater than or equal to two midnights and that the services needed warrant inpatient care because: Patient Risk Factors: [amputation with open wounds, DM, febrile] Estimated length of stay: [3] The patient may reasonably be expected to be discharged or transferred to a hospital within 96 hours after admission to [facility]. Services needed: [podiatry, IV abx, surgery] Post hospital care (if known): [] I certify that my determination is in accordance with my understanding of [facility] requirements for reasonable and necessary inpatient services. 11/05/19 12:31 - Detailed Diagnosis and Plan (1) Diabetic foot infection Current Visit: Yes Status: Acute Base Code: E11.628 - TYPE 2 DIABETES MELLITUS WITH OTHER SKIN COMPLICATIONS; L08.9 - LOCAL INFECTION OF THE SKIN AND SUBCUTANEOUS TISSUE, UNSP Comment: - WBC normal, CRP elevated - Fever resolved. - zosyn - Vancomycin pharmacy to dose - blood culture pending - MRI showed abscess and osteomyelitis. - will transfer to [facility] for treatment of osteomyelitis and C/S with clay pigeon loader Dr. Hartley. (2) DVT prophylaxis Current Visit: No Status: Acute Base Code: Z29.9 - ENCOUNTER FOR PROPHYLACTIC MEASURES, UNSPECIFIED Comment: - Lovenox QD (3) Full code status Current Visit: No Status: Acute Base Code: Z78.9 - OTHER SPECIFIED HEALTH STATUS - Disposition Transfer to acute care facility given MRI results.
--- NOTE | 2019-11-05 12:40 | Discharge Summary ---
Providers Discharge Summary Date: 11/05/19 Date of admission: 11/04/19 18:18 Expected Date of Discharge: 11/05/19 Attending physician: TONIE CHENG Primary care physician: JAMILA KATE D.O. Physical Exam - Vital Signs Vital Signs: Vital Signs - Last 24 Hrs Temp Pulse Pulse Resp BP BP Pulse Ox 11/05/19 08:49 16 11/05/19 08:30 98.0 F 20 11/05/19 08:12 71 16 101/52 98 11/05/19 04:45 102.8 F H 11/05/19 03:45 100.4 F H 85 18 131/94 96 11/04/19 22:00 99.0 F 11/04/19 18:53 100.2 F H 101 H 16 140/70 99 11/04/19 16:24 99.7 F H 100 H 18 129/68 98 11/04/19 14:00 98.5 F 95 H 20 145/77 97 - General General Appearance: Alert, Oriented x3, Cooperative, No acute distress Limitations: No limitations - Head Head exam: Atraumatic, Normocephalic, Normal inspection - Eye Eye exam: Normal appearance - ENT ENT exam: Normal exam Ear exam: Normal external inspection Nasal Exam: Normal inspection Mouth exam: Normal external inspection - Neck Neck exam: Normal inspection - Respiratory Respiratory exam: Normal lung sounds bilaterally. negative: Accessory muscle use, Decreased breath sounds, Respiratory distress, Rhonchi, Stridor, Wheezes - Cardiovascular Cardiovascular Exam: Regular rate, Normal rhythm, Normal heart sounds Peripheral Pulses: 2+: Radial (R), Radial (L) - GI/Abdominal GI/Abdominal exam: Soft. negative: Distended - Rectal Rectal exam: Deferred - exam: Deferred - Extremities Extremities exam: Full ROM, Joint swelling, Normal capillary refill, Tenderness. negative: Normal inspection, Calf tenderness, Pedal edema Image of Feet: 1 - - s/p amputation to the midfoot. No digits are left. 2 open wounds noted, serosanguinous drainage noted from the medial wound. very foul smelling. Mild erythema noted of the foot within marked region. Medial Ulcer has white tissue, possibly pus/ vs granulation tissue. lateral wound dry. - Back Back exam: Reports: Full ROM - Neurological Neurological exam: Alert, Oriented X3 - Psychiatric Psychiatric exam: Normal affect, Normal mood. negative: Agitated, Anxious - Skin Skin exam: Erythema (foot as noted above) Hospitalization - Hospitalization Admission Diagnosis: cellulitis - Problem List/Discharge Diagnosis (1) Diabetic foot infection Current Visit: Yes Status: Acute Base Code: E11.628 - TYPE 2 DIABETES MELLIT US WITH OTHER SKIN COMPLICATIONS; L08.9 - LOCAL INFECTION OF THE SKIN AND SUBCUTANEOUS TISSUE, UNSP Comment: - WBC normal, CRP elevated - Fever resolved. - zosyn - Vancomycin pharmacy to dose - blood culture pending - MRI showed abscess and osteomyelitis. - [place] [facility] [place] and C/S with family support worker Dr. Hartley. (2) DVT prophylaxis Current Visit: No Status: Acute Base Code: Z29.9 - ENCOUNTER FOR PROPHYLACTIC MEASURES, UNSPECIFIED Comment: - Lovenox QD (3) Full code status Current Visit: No Status: Acute Base Code: Z78.9 - OTHER SPECIFIED HEALTH STATUS - Disposition Transfer to acute care facility given MRI results. - Hospitalization Course Hospital Course: PMHx: amputation of the R foot, chronic wound, HTN, BPH, HLD, DM ED course: 69 yo male presents with subjective fevers, chills, shaking, redness, swelling and pain in the foot that he states has had several surgeries recently. He states his last 4 surgeries were [place] [facility] Hart[place]. The onset of today's symptoms was this morning. He denies any drainage or injury at home. He reports he is a diabetic. His first surgery was in July with Dr Barba. He was then transferred [place] [facility] [place] care due to PAD and infection. Vitals: Abnormal labs: Na 134, K 4.6, Cr 1.1, CRP 6.69, ESR 81, Hb 9.5 (chronic) - no WBC elevation Abnormal vitals: BP 145/77 - afebrile. Given: Ampicillin/ subactam and vanco 1 dose of each Pt admitted for cellulitis. Hospital course (< 24 hours): - Pt was switched from ampicillin/sulbactam to zosyn by myself for better pseudomonas coverage. - He received one dose of this prior to getting fever this AM. Vanco was given in ED. - Overnight pt had TMAX of 102, treated with ibuprofen and tylenol. He also received his 2nd scheduled dose of zosyn at this time. - Blood cultures were obtained in ED and also during fever. - Fever resolved over 2 hours. - CRP reduced this AM to 6.18 and electrolytes normalized. WBC still wnl this AM. - MRI showed this AM that findings are concerning for abscess with osteomyelitis of the first and second metatarsal stumps. - Pt accepted for transfer [place] [facility] [place] of [place]omyelitis and c/s with Dr. Hartley. Procedures: Imaging and X-Rays 11/04/19 14:37 FOOT, RIGHT 3 VIEWS [RAD] Stat 11/04/19 17:06 LOWER EXTREMITY NO JOINT WWO [MRI] Stat Abnormal Labs: Abnormal Lab Results 11/04/19 11/04/19 11/05/19 Range/Units 14:50 14:50 07:47 RBC 3.56 L 3.42 L (4.40-5.70) M/uL Hgb 9.5 L 9.0 L (14.0-18.0) gm/dl Hct 30.8 L 29.4 L (42.0-52.0) % MCH 26.6 L 26.3 L (27-33) pg MCHC 30.8 L 30.6 L (32-36) g/dl RDW 16.5 H 16.4 H (11.5-14.5) % MPV 11.7 H 11.8 H (7.4-10.4) fl Lymphocytes % 11.5 L 13.5 L (16-45) % ESR 81 H (0-20) mm/hr Sodium 134 L (136-145) mmol/L Potassium 4.6 H (3.4-4.5) mmol/L Carbon Dioxide 21.0 L (22-29) mmol/L BUN 24 H (8-23) mg/dL Creatinine (0.7-1.2) mg/dL POC Glucose (70-110) mg/dL Random Glucose (74-109) mg/dL C-Reactive Protein 6.69 H (<0.5) mg/dL 11/05/19 11/05/19 Range/Units 07:47 12:00 RBC (4.40-5.70) M/uL Hgb (14.0-18.0) gm/dl Hct (42.0-52.0) % MCH (27-33) pg MCHC (32-36) g/dl RDW (11.5-14.5) % MPV (7.4-10.4) fl Lymphocytes % (16-45) % ESR (0-20) mm/hr Sodium (136-145) mmol/L Potassium (3.4-4.5) mmol/L Carbon Dioxide 20.0 L (22-29) mmol/L BUN (8-23) mg/dL Creatinine 1.3 H (0.7-1.2) mg/dL POC Glucose 215 H (70-110) mg/dL Random Glucose 142 H (74-109) mg/dL C-Reactive Protein 6.18 H (<0.5) mg/dL Condition at Discharge: (2) Stable Discharge Medications - Discharge Medications Home Medications: Ambulatory Orders Losartan Potassium 100 tab PO DAILY 02/05/16 [Last Taken 08/26/19] Metformin HCl 1,000 mg PO BID 02/05/16 [Last Taken 08/26/19] Aspirin Chewable 81 mg PO DAILY 03/07/18 [Last Taken 08/26/19] Gabapentin [Neurontin] 100 mg PO TID 03/07/18 [Last Taken 08/26/19] Glimepiride [Amaryl] 8 mg PO QAM 03/07/18 [Last Taken 08/26/19] Insulin Degludec [Tresiba Flextouch U-100] 50 unit SQ QAM 03/07/18 [Last Taken 08/26/19] Meloxicam 7.5 mg PO BID 03/07/18 [Last Taken 08/26/19] Atorvastatin Calcium [Lipitor] 20 mg PO QD tab 02/20/19 [Last Taken 08/26/19] Vitamin D3 1 tab PO DAILY 02/20/19 [Last Taken 08/26/19] Lisinopril 10 mg PO DAILY 07/25/19 [Last Taken 08/26/19] Hydrocortisone/Pramoxine [Proctofoam-Hc 1%-1% Foam] 10 gm RC DAILY 10 Days #10 foam 08/26/19 [Last Taken Unknown] Tamsulosin HCl [Flomax] 0.4 mg PO QHS 08/26/19 [Last Taken 11/04/19 20:07 0.4] Discharge Plan - Discharge Instructions Activity at Discharge: As Per Physical Therapy Diet at Discharge: Diabetic Diet Quality Measures - Quality Measures Quality Measures: Advance Directives, Documentation of Current Medications in Medical Record, Elder Maltreatment Screen and Follow-Up Plan, Screening for High Blood Pressure and F/U Documented - Current Medications Quality Measure: Measure #130: Documentation of Current Medications Documentation of Current Medications: <Current Medications Documented/Reviewed> [G7440] - Blood Pressure Screening Quality Measure: Screening for High Blood Pressure and Follow-Up Documented Does Patient Have Any of the Following: Active Dx of HTN Blood Pressure Classification: Hypertensive Reading Systolic Measurement: 145 Diastolic Measurement: 77 Screening for High Blood Pressure: Patient Exclusion, Hx of HTN [G9744] - Advance Directives Quality Measure: Measure #47: Care Plan Advance Directives Established: No Advance Directives Information Provided To Patient: No Advance Directives on File: No Living Will: No Power of Commercial Horticulture Instructor: No Advance Care Planning: <Care Plan/Decision Maker Documented; Discussed & Documented> [[id number]] - Elder Abuse Suspicion Index Screening: Elder Abuse Suspicion Index Screening Rely on people for bathing, dressing, shopping, banking, etc: No Prevented from getting food, clothes, medication, etc: No Made to feel shamed or threatened by someone: No Forced to sign papers or use money against will: No Feel afraid, touched in ways not wanted or hurt physically: No Poor eye contact, withdrawn, malnourished, cuts or bruises: No Screening Result: Negative result EASI Reference Information: Masha MODI, Krishna C, Yaritza D, Shahriar Encinas.Development and validation of a tool to assist physicians identification of elder abuse: The Elder Abuse Suspicion Index (EASI ). Journal of Elder Abuse and Neglect, 2008; 20 (3): 276-300. - Elder Maltreatment Screen Quality Measures: Elder Maltreatment Screen and Follow-Up Plan Elder Maltreatment Screen: <Negative, No Follow-Up Plan Required> [G8734]
[2019-11-05] MEDS ORDERED: NYSTATIN 15 GM TUBE TOP PRN (13:00)
[2019-11-05] MEDS ORDERED: VANCOMYCIN 1.5GM/300ML PREMIX 1.5 GM/300 ML PIGGYBACK IVPB SCH (15:00)
[2019-11-05] MEDS ORDERED: TRIAMCINOLONE ACET 0.1% CREAM 15G TUBE TOP SCH (22:00)
== END 2019-11-05 13:15 | disposition short-term general hospital (02) ==
LOC: ER 13:38 → INTOOBSV 18:18 → MEDSURG 18:18
PROVIDERS: ADMIT Internal Medicine; ATTEND Internal Medicine
DX: E11.628 Type 2 diabetes mellitus with other skin complications (principal); L08.9 Local infection of the skin and subcutaneous tissue, unspecified; R50.9 Fever, unspecified; Z89.421 Acquired absence of other right toe(s); G62.9 Polyneuropathy, unspecified; I74.9 Embolism and thrombosis of unspecified artery; I25.2 Old myocardial infarction; Z87.891 Personal history of nicotine dependence
CPT/HCPCS: 36416; 80048; 80053; 82948; 85025; 85027; 85651; 86140; 87040; 96365; 96375; 99220; 99285; J0295; J1650; J2405; J2543; J7040